=== PATIENT | female | born 1930 | race Caucasian/White ===

== ENCOUNTER → 2017-10-07 | Outpatient (CLI) | payer MEDICARE ==
--- NOTE | 2017-10-07 09:10 | CARD ---
APPROVED REPORT EXAM: Two-dimensional and M-mode echocardiogram with Doppler and color Doppler. Other Information Quality : Average Rhythm : NSR INDICATION Hypertension/HCVD 2D DIMENSIONS RVDd3.2 (2.9-3.5cm)Left Atrium(2D)3.1 (1.6-4.0cm) IVSd0.9 (0.7-1.1cm)Aortic Root(2D)2.4 (2.0-3.7cm) LVDd4.6 (3.9-5.9cm)LVOT Diameter2.0 (1.8-2.4cm) PWd0.9 (0.7-1.1cm)LVDs3.4 (2.5-4.0cm) FS (%) 25.4 %SV48.4 ml LVEF(%)50.2 (>50%) Aortic Valve AoV Peak Luis.194.4cm/sAoV VTI51.6cm AO Peak GR.15.1mmHgLVOT Peak Luis.91.7cm/s LVOT VTI 22.93cmAO Mean GR.10mmHg NAVEEN (VMAX)1.86re6OEU (VTI)1.40cm2 Mitral Valve MV E Yqqlgvdj241.0cm/sMV E Peak Gr.12mmHg MV DECEL [id number] A Vvuefsgp533.3cm/s MV E Mean Gr.4mmHgMV LMX19pp E/A Ratio0.9MV A Egnkrsnq447qn MVA (PHT)3.54cm2 Tricuspid Valve TR P. Jptgdtzm593jk/sRAP TUFOFGRP2fsUq TR Peak Gr.31iwUlQJEA91tsEv LEFT VENTRICLE The left ventricle is normal size. There is normal left ventricular wall thickness. Left ventricle sy stolic function is normal. The Ejection Fraction is 50-55%. There is normal LV segmental wall motion. Tissue Doppler imaging reveals mild left ventricular diastolic dysfunction. There is no ventricular septal defect visualized. RIGHT VENTRICLE The right ventricle is normal size. The right ventricular systolic function is normal. ATRIA The left atrium is mildly dilated. The right atrium size is normal. The interatrial septum is intact with no evidence for an atrial septal defect or patent foramen ovale as noted on 2-D or Doppler imagi ng. AORTIC VALVE The aortic valve is not well visualized. Suspect non-coronary cusp leaflet restriction. Doppler and C olor Flow revealed no significant aortic regurgitation. Maximum pressure gradient of 15 mmHg and mean pressure gradient of 10 mmHg. No evidence of significant aortic stenosis by doppler interrogation. MITRAL VALVE Mitral annular calcification is mild. There is no mitral valve stenosis. Doppler and Color Flow revea led mild mitral regurgitation. TRICUSPID VALVE The tricuspid valve is normal in structure. Doppler and Color Flow revealed mild tricuspid regurgitat ion. The PA pressure was estimated at 42 mmHg. There is no tricuspid valve stenosis. PULMONIC VALVE The pulmonic valve is not well visualized. Doppler and Color Flow revealed no pulmonic valvular regur gitation. There is no pulmonic valvular stenosis. GREAT VESSELS The aortic root is normal in size. Pulmonary veins not recorded. The IVC was not well visualized. PERICARDIAL EFFUSION There is no evidence of significant pericardial effusion. Critical Notification Critical Value: No <Conclusion> Left ventricle systolic function is normal. The Ejection Fraction is 50-55%. There is normal LV segmental wall motion. Doppler and Color Flow revealed mild tricuspid regurgitation. The PA pressure was estimated at 42 mmH g.
== END | disposition home or self-care (01) ==
LOC: ECHO 07:26
PROVIDERS: ATTEND Internal Medicine Cardiovascular Disease
DX: I11.9 Hypertensive heart disease without heart failure (principal); I70.0 Atherosclerosis of aorta; I08.1 Rheumatic disorders of both mitral and tricuspid valves
CPT/HCPCS: 93306

== ENCOUNTER → 2017-10-08 | Outpatient (CLI) | payer MEDICARE ==
--- NOTE | 2017-10-08 11:30 | RAD ---
APPROVED REPORT Patient Location: OUT-PATIENT Indications Reynoso scale images of the bilateral lower extremity arterial vessels reveals mild to moderate scattere d atherosclerotic plaque throughout the arterial tree. The waveforms are biphasic throughout the bila teral lower extremities. Velocities in the common femoral, SFA and popliteal segments on the right side are approximately 153, 131 and 65 cm/s. The below-knee vessels appear to be patent on the right side with velocities in the range of 33 to 66 cm/s. Similarly on the left side velocities from the common femoral artery to the popliteal segment range from 117 in the ADO[employer]KER to 79 in the popliteal. Below-knee vessels on the left si de are again patent. No high-grade disease is identified. Suspect mild to moderate diffuse disease. Critical Notification Critical Value: No <Conclusion> No evidence of high-grade disease in the bilateral lower extremity arterial vessels with three-vessel runoff below the knees.
== END | disposition home or self-care (01) ==
LOC: US 08:16
PROVIDERS: ATTEND Internal Medicine Cardiovascular Disease
DX: I73.9 Peripheral vascular disease, unspecified (principal); I11.9 Hypertensive heart disease without heart failure
CPT/HCPCS: 93925

== ENCOUNTER → 2018-04-28 | Outpatient (CLI) | payer MEDICARE ==
--- NOTE | 2018-04-28 17:03 | RAD ---
MR#: [id number] Date of Study: 04/28/2018 Ordering Physician: KRISTIN HELLER, Referring Physician: KRISTIN HELLER, Tech: Karolina Posada RDMS, JUNO APPROVED REPORT Patient Location: OUT-PATIENT Laterality:Bilateral Indications ARTERIAL STENOSIS, HISTORY OF BILATERAL ENDARECTOMIES Grayscale images of the bilateral common carotid, carotid bulbs, internal carotid and external caroti d vessels reveal mild nonobstructive plaque with mild intimal hyperplasia. Spectral waveforms and col or Doppler on the right and left common carotid, internal and external carotid vessels do not reveal any significant velocity acceleration or deceleration. Overall 0 to less than 50% stenosis by ultraso und criteria bilaterally. The bilateral vertebral velocities are antegrade fashion. ICA to CCA ratios are grossly within normal limits. Risk Factors Hypertension: TIA/CVA History Hyperlipidemia PAD Surgery/Intervention Endarterectomy: right left Doppler Spectral Velocity Analysis Right Left pCCA 69/13 cm/spCCA 76/12 cm/s mCCA 56/10 cm/smCCA 75/11 cm/s dCCA 57/12 cm/sdCCA 76/14 cm/s ECA 65/9 cm/sECA 69/7 cm/s pICA 72/16 cm/spICA 69/14 cm/s Jefry 75/15 cm/smICA 73/20 cm/s dICA 81/9 cm/sdICA 73/14 cm/s ICA/CCA 1.17ICA/CCA 0.96 Critical Notification Critical Value: No <Conclusion> 1. No significant bilateral carotid arterial disease. 0 to less than 50% stenosis by ultrasound crite joann. Signed by : Berto Manzanares, Electronically Approved : 04/28/2018 17:02:19
--- NOTE | 2018-04-28 17:08 | RAD ---
MR#: [id number] Date of Study: 04/28/2018 Ordering Physician: KRISTIN HELLER, Referring Physician: KRISTIN HELLER, Tech: Karolina Posada RDMS, JUNO APPROVED REPORT Patient Location: OUT-PATIENT Indications Claudication:Bilaterally Pulselessness PAD On the right, grant scale images demonstrate diffuse atherosclerotic plaque. Elevated velocities are n oted in the distal right common femoral artery at greater than 200 cm/s suggestive of more proximal i liac disease. There is again velocity acceleration noted in the mid to distal SFA suggestive of great er than 50% stenosis, cannot rule out a previous stent in the right SFA. Below the knee there is 1 ve ssel runoff with a patent anterior tibial artery. The posterior tibial and peroneal vessels appear to be occluded. The popliteal artery is patent. On the left grayscale images again demonstrate mild diffuse catheters carotid plaque but more moderat e in nature in the mid to distal SFA. Spectral waveforms in the mid to distal SFA and velocities are suggestive of greater than 50% stenosis consistent with grayscale images. There are blunted waveforms in the posterior tibial and peroneal vessels but they appear to be patent. The anterior tibial arter y is likely occluded with distal reconstitution at the level of the dorsalis pedis likely from collat eralization. Risk Factors History of Lower Extremity PAD: Hypertension Hyperlipidemia TIA/CVA History STENT PLACED IN LT SFA MID IN 2005 PER PATIENT Surgery/Intervention Stent : VELOCITY AND DOPPLER WAVEFORM ANALYSIS RIGHT cm/secWaveformSeverity LEFT cm/secWaveform Severity pCFA 237.0BiphasicpCFA 139.0Biphasic dCFA dCFA Prof Fem Art. 103.0BiphasicProf Fem Art. 155.0Biphasic Fem Art Prox. 119.0BiphasicFem Art Prox. 100.0Biphasic Fem Art Mid. 221.0BiphasicFem Art Mid. 205.0Biphasic Fem Art Dist. 184.0BiphasicFem Art Dist. 85.0Biphasic Pop Art(AK) Pop Art(AK) Pop Art(Fossa) 52.0BiphasicPop Art(AK) 129.0Biphasic Pop Art(BK) Pop Art(BK) JOURNALISM INTERN Prox. 36.0BiphasicPTA Prox. 57.0Biphasic JOURNALISM INTERN Mid.JOURNALISM INTERN Mid. JOURNALISM INTERN Dist. 0.0OccludedPTA Dist. 80.0Biphasic Per Art Mid. 0.0OccludedPer Art Mid. 72.0Biphasic ALFRED Prox. 61.0BiphasicATA Prox. 16.0Biphasic DPA 64BiphasicDPA 182Biphasic Critical Notification Critical Value: No <Conclusion> 1. Significant bilateral mid to distal SFA and below-knee disease with 1 vessel runoff on the right a nd 2 vessel runoff on the left. Signed by : Berto Manzanares, Electronically Approved : 04/28/2018 17:06:56
== END | disposition home or self-care (01) ==
LOC: US 10:13
PROVIDERS: ATTEND Internal Medicine Cardiovascular Disease
DX: I65.23 Occlusion and stenosis of bilateral carotid arteries (principal); I77.1 Stricture of artery; I10 Essential (primary) hypertension; I73.9 Peripheral vascular disease, unspecified; E78.5 Hyperlipidemia, unspecified; Z86.73 Personal history of transient ischemic attack (TIA), and cerebral infarction without residual deficits
CPT/HCPCS: 93880; 93925

== ENCOUNTER 2020-05-19 10:01 | Emergency (ER) | payer MEDICARE ==
[~2020-05-19] VITALS: Ht 157.5 cm; Wt 52.8 kg
[2020-05-19 10:51] VITALS: BP 146/72
--- NOTE | 2020-05-19 10:51 | RAD ---
EXAM: Chest, 2 views. HISTORY: Cough. COMPARISON: None. FINDINGS: 2 views of the chest are obtained. There are small bilateral pleural effusions. There is basilar atelectasis There is emphysema. The heart is normal in size. IMPRESSION: 1. Small bilateral pleural effusions with basilar atelectasis. 2. Emphysema. Electronically signed by: Daniella Jacob MD (05/19/2020 10:48 AM) [id number]
[2020-05-19] MEDS ORDERED: AZIT250T PO (11:07)
--- NOTE | 2020-05-19 11:07 | PHYS DOC ---
General Adult EDM: Chief Complaint: DYSPNEA/RESPIRATOY DISTRESS HPI: HPI: Patient is a 89-year-old female presenting to the ED with a chief complaint of upper respiratory symptoms. Patient states that she recently had nasal congestion and was prescribed Afrin by her PCP. Patient states that the Afrin h elped her and now she has postnasal drip. Patient called PCPs office this morning and was told to come to the ER. Patient states that she wants to make sure to get a chest x-ray to see if she has pneumonia or not. Patient denies fever, chills, nausea, vomiting, chest pain. Review of Systems: Review of Systems: Constitutional: Denies fever or chills Eyes: Denies change in visual acuity HENT: Complains of sinus congestion Respiratory: Denies cough or shortness of breath Cardiovascular: Denies chest pain or edema GI: Denies abdominal pain, nausea, vomiting, bloody stools or diarrhea : Denies dysuria Musculoskeletal: Denies back pain or joint pain Heart Score: Risk Factors: Risk Factors: DM, Current or recent (<one month) smoker, HTN, HLP, family history of CAD, obesity. Risk Scores: Score 0 - 3: 2.5% MACE over next 6 weeks - Discharge Home Score 4 - 6: 20.3% MACE over next 6 weeks - Admit for Clinical Observation Score 7 - 10: 72.7% MACE over next 6 weeks - Early Invasive Strategies Allergies: Allergies: Allergies Coded Allergies Type Severity Reaction Last Updated Verified ciprofloxacin Allergy Intermediate 05/19/20 Yes levofloxacin Allergy Intermediate 05/19/20 Yes acetaminophen Adverse Reaction Intermediate LIVER DAMAGE 05/19/20 No Physical Exam: PE: Constitutional: Well developed, well nourished, no acute distress, non-toxic appearance. [] HENT: Normocephalic, atraumatic, mild maxillary sinus tenderness Eyes: EOMI Neck: Normal range of motion, Supple Cardiovascular:Heart rate regular rhythm Lungs & Thorax: Bilateral breath sounds clear to auscultation [] Abdomen: Bowel sounds normal, soft, no tenderness Extremities: No tenderness, ROM intact Neurologic: Alert and oriented X 3 EKG: EKG: [] Radiology/Procedures: Radiology/Procedures: [] Impressions: CXR IMPRESSION: 1. Small bilateral pleural effusions with basilar atelectasis. 2. Emphysema. Course & Med Decision Making: Course & Med Decision Making Pertinent Imaging studies reviewed. (See chart for details) Chest x-ray does not show obvious pneumonia. There are bilateral small pleural effusions and emphysema changes seen. Discussed results and plan of care with patient. Due to patient's presenting symptoms with possible sinus infection, patient will be discharged home on oral antibiotics. Patient is instructed to follow up with PCP in one to 2 days. Appropriate discharge instructions given to patient to return to the ED or to seek immediate medical evaluation. Patient is instructed to return to the ED if symptoms worsen or if any concerns. Dragon Disclaimer: Dragon Disclaimer: This electronic medical record was generated, in whole or in part, using a voice recognition dictation system. Departure Departure: Impression: Primary Impression: Sinusitis Disposition: 01 HOME/RESIDENCE PRIOR TO ADM Condition: STABLE Referrals: JAMES ZAMBRANO MD (PCP) Patient Instructions: Sinusitis Additional Instructions: Discussed results and plan of care with patient. Patient is instructed to follow up with PCP in one to 2 days. Appropriate discharge instructions given to patient to return to the ED or to seek immediate medical evaluation. Patient is instructed to return to the ED if symptoms worsen or if any concerns. Scripts Azithromycin (ZITHROMAX) 250 Mg Tablet 250 MG PO DAILY for Sinusitis for 4 Days, #4 TAB 0 Refills Prov: YU SUE DO 05/19/20 Justification of Admission: Justification of Admission: Justification of Admission Dx: YU Sanches DO May 19, 2020 11:07
[2020-05-19] MEDS ORDERED: AZITHROMYCIN 250 MG TABLET. PO ONE (11:15)
== END 2020-05-19 11:20 | disposition home or self-care (01) ==
LOC: ER 10:01
DX: J32.9 Chronic sinusitis, unspecified (principal); R09.81 Nasal congestion; Z88.1 Allergy status to other antibiotic agents; Z88.8 Allergy status to other drugs, medicaments and biological substances
CPT/HCPCS: 71046; 99283; J0456

== ENCOUNTER → 2020-05-23 | Outpatient (CLI) | payer MEDICARE ==
[2020-05-19 10:51] VITALS: BP 146/72
[~2020-05-23] MED LIST: AZIT250T PO
--- NOTE | 2020-05-23 12:55 | RAD ---
BILATERAL DUPLEX CAROTID SONOGRAPHY History: Reason: MASS ON RT NECK, HX OF BILAT ENDART, HTN Technique: Duplex sonography of the cervical portion of both carotid arteries was performed. Real-time grayscale, color flow Doppler, and Doppler spectral waveform analysis is performed. Findings: Right side: Peak systolic flow velocity of the CCA is 62 cm/sec. Peak systolic flow velocity of the ICA is 79 cm/sec. The ICA/CCA ratio is 1.3. Peak end diastolic flow velocity of the ICA is 10 cm/sec. The peak systolic velocity of the ECA is 94 cm/sec. There is an echogenic plaque in the carotid bulb. The right internal jugular vein is patent. In the right neck there is a tubular mass with internal vascularity measuring approximately 3.7 x 0.4 x 0.8 cm. Given the significant internal vascularity the structure may be vascular. Left side: Peak systolic flow velocity of the CCA is 68 cm/sec. Peak systolic flow velocity of the ICA is 83 cm/sec. The ICA/CCA ratio is 1.2. Peak end diastolic flow velocity of the ICA is 9 cm/sec. Peak systolic flow velocity of the ECA is 124 cm/sec. No significant plaque formation is identified. Vertebral arteries: Bilateral vertebral arteries demonstrate antegrade flow. IMPRESSION: 1. No hemodynamically significant internal carotid artery stenosis is identified. 2. In the right neck there is hypoechoic tubular lesion with significant internal vascularity. Recommend further evaluation with CT soft tissue neck with contrast. PQRS Compliance Statement - Stenosis calculations for CT, MR and conventional angiography are based upon measurement of the distal ICA diameter in accordance with the NASCET methodology. Stenosis calculations for carotid ultrasound studies are derived from validated velocity criteria which are known to correlate with the NASCET methodology. Electronically signed by: Bryan Lala MD (05/23/2020 12:52 PM) [id number]
== END | disposition home or self-care (01) ==
LOC: US 09:25
PROVIDERS: ATTEND Specialist
DX: I73.89 Other specified peripheral vascular diseases (principal); R22.1 Localized swelling, mass and lump, neck
CPT/HCPCS: 93880

== ENCOUNTER → 2020-06-01 | Outpatient (CLI) | payer MEDICARE ==
[2020-05-19 10:51] VITALS: BP 146/72
[~2020-06-01] MED LIST changes: +IOHEXOL 300 MG/ML 75 ML VIAL. IV ONE
--- NOTE | 2020-06-01 09:27 | RAD ---
EXAM: CT NECK SOFT TISSUES WITH CONTRAST. HISTORY: Right neck mass. TECHNIQUE: Computed tomography of the neck soft tissues was performed after the intravenous administration of iodinated contrast. One or more of the following individualized dose reduction techniques were utilized for this examination: 1. Automated exposure control. 2. Adjustment of the mA and/or kV according to patient size. 3. Use of iterative reconstruction technique. COMPARISON: None. FINDINGS: Images of the lung apices reveal moderate centrilobular emphysema. There are small to moderate bilateral pleural effusions. Bone windows reveal no suspicious lesions. Posterior disc-osteophyte complexes from C5 through C7 result in at least mild central canal stenosis, incompletely assessed by CT. An ill-defined infiltrative mass appears to arise within the deep lobe of the right parotid gland and measures approximately 3.8 x 3.6 cm transaxially. It extends superiorly to the stylomastoid foramen, medially to the medial aspect of the lateral pterygoid muscle and anteriorly to the posterior border of the mandible. It extends to abut and compress the right carotid space without clear encasement. There is partial encasement of the right styloid process. It either compresses or invades the right parapharyngeal fat. The right internal jugular vein is compressed proximally but patent more distally. Both styloid processes are long and extend almost to the hyoid bone. The left parotid gland is unremarkable. Both submandibular glands are unremarkable. An exophytic nodule along the inferior pole of the left thyroid lobe measures 2.0 x 1.0 cm. A right supraclavicular node measures 1.6 x 1.0 cm on image 53. There are no other clearly enlarged lymph nodes. There are no clear laryngeal or pharyngeal masses. IMPRESSION: 1. 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 Ongoing management is recommended. 2. One prominent right supraclavicular lymph node is indeterminate. No other clearly involved nodes are seen. 3. Correlate clinically for Platinum syndrome. 4. Moderate centrilobular emphysema. Small to moderate bilateral pleural effusions. Electronically signed by: Gerald Valdez MD (06/01/2020 9:24 AM) [id number]
== END ==
LOC: CT 08:12
PROVIDERS: ATTEND Specialist
DX: R22.1 Localized swelling, mass and lump, neck (principal); J43.2 Centrilobular emphysema; J90 Pleural effusion, not elsewhere classified
CPT/HCPCS: 70491; Q9967

== ENCOUNTER 2020-06-26 17:18 | Inpatient (IN) | payer MEDICARE ==
[~2020-06-26] VITALS: Ht 160 cm; Wt 49.8 kg
[~2020-06-26 17:18] MED LIST changes: -IOHEXOL 300 MG/ML 75 ML VIAL. IV ONE
[2020-06-26] MEDS ORDERED: IV RINGERS SOLUTION,LACTATED 1,000 ML IV SCH (17:46)
--- NOTE | 2020-06-26 17:46 | PHYS DOC ---
Past History Past Medical History: Anxiety, Arthritis, CHF, COPD, Diabetes, High Cholesterol, Hypertension, TIA, Other Additional Past Medical Histor: Doss's Palsy x 2 Past Surgical History: Appendectomy, Cholecystectomy, Oophorectomy, Other Additional Past Surgical Histo: cataracts; Carotid Endarectomy Smoking: Quit Greater Than 1 Year Alcohol Use: None General Adult EDM: Chief Complaint: SHORTNESS OF BREATH HPI: HPI: "..I been getting sick a few days.. now... cough,.. fever like.... chills... almost like the flu.... I so short of breath... ..".. :' I can 't lay down..because I get so short of breath..."" I usually see Stuart Archuleta...." Patient is a 89 year old female who presents with above hx and complaints of dyspnea, cough, chest congestion, and malaise. Pt. denies recent travel or specific ill contacts. Patient reports increased dyspnea with even short distances of walking. Patient has had some subjective fever or chills-like symptoms. Patient normally follows with Dr. Alpesh Chase. Has had history of previous episodes of CHF. On review of x-ray showed has previous x-rays on file showing bilateral basilar atelectasis and pleural effusion. Does have a history of emphysema, TIA,,CVA, Elevated Lipids, Peripheral Art. Dz,, arthritis, diabetic and Bronchitis. Pt. has not been oxygen dependent. Pt. follows with Norm. Patient has also follow-up with Dr. River. Review of Systems: Review of Systems: Constitutional: Denies fever or chills Eyes: Denies change in visual acuity HENT: Denies nasal congestion or sore throat Respiratory: Complaints of cough and shortness of breath Cardiovascular: Denies chest pain or edema GI: Denies abdominal pain, nausea, vomiting, bloody stools or diarrhea : Denies dysuria Musculoskeletal: Denies back pain or joint pain Integument: Denies rash Neurologic: Denies headache, focal weakness or sensory changes Endocrine: Denies polyuria or polydipsia Lymphatic: Denies swollen glands Psychiatric: Denies depression or anxiety Heart Score: HEART Score for Chest Pain: HEART Score for Chest Pain Response (Comments) Value History Moderately Suspicious 1 ECG Nonspecific Repolarizatio 1 Age > 65 2 Risk Factors 1 or 2 Risk Factors 1 Troponin < Normal Limit 0 Total 5 Risk Factors: Risk Factors: DM, Current or recent (<one month) smoker, HTN, HLP, family history of CAD, obesity. Risk Scores: Score 0 - 3: 2.5% MACE over next 6 weeks - Discharge Home Score 4 - 6: 20.3% MACE over next 6 weeks - Admit for Clinical Observation Score 7 - 10: 72.7% MACE over next 6 weeks - Early Invasive Strategies Family History: Family History: Noncontributory to presentation Current Medications: Current Meds: See nursing for home meds Allergies: Allergies: Allergies Coded Allergies Type Severity Reaction Last Updated Verified ciprofloxacin Allergy Intermediate 06/26/20 Yes levofloxacin Allergy Intermediate 06/26/20 Yes acetaminophen Adverse Reaction Intermediate LIVER DAMAGE 06/26/20 No Physical Exam: PE: Constitutional: Moderate acute distress, non-toxic appearance. Upon movement her sats dropped below 90%. HENT: Normocephalic, atraumatic, bilateral external ears normal, oropharynx moist, no oral exudates, nose normal. []Rt. side [place] ( Present previously) Hearing aids. Eyes: Marked decreased vision in Rt eye, ( Old) conjunctiva normal, no discharge. Glasses Neck: Normal range of motion, no tenderness, supple, no stridor. JVD sitting position. Old surgery scar. Cardiovascular: Tachycardia heart rate regular rhythm, no murmur, PMI to the left, occasional PVC noted on monitor Lungs & Thorax: Bilateral breath sounds bibasilar crackles and wheezes, some rhonchi on auscultation []Dull to percussion bilateral bases > Rt. than Lt. Abdomen: Bowel sounds hyperactive, soft, no tenderness, no masses, no pulsatile masses. Has old surgery scars. Skin: Warm, dry, no erythema, no rash. Poor turgor Back: No tenderness, no CVA tenderness. [] Extremities: No tenderness, no cyanosis, no clubbing, ROM intact, ankle edema. Arthritic changes,decreased bilateral pedal pulses. Neurologic: Alert and oriented X 3, moves extremities on request has distal sensory, no gross focal deficits noted. [] Psychologic: Affect anxious, judgement normal, mood normal. [] EKG: EKG: My interpretation of EKG shows a sinus rhythm at 91 bpm. She does have PVCs. There is an occasional PAC. Slightly prolonged QT interval at 394 QTC is 486.] Radiology/Procedures: Radiology/Procedures: [[address] [address] IMAGING REPORT Signed PATIENT: ALVIN PARKER ACCOUNT: [id number] : 1930 LOCATION: ER AGE: 89 SEX: F EXAM STATUS: REG ER ORD. PHYSICIAN: TREE GARCIA MD REASON: hypoxia, dyspnea PROCEDURE: CT ANGIOGRAPHY CHEST Exam: CT of chest with contrast INDICATION: Hypoxia, dyspnea TECHNIQUE: Sequential axial images through the chest obtained following the administration of 100 mL of Omni 350 IV contrast. Sagittal and coronal reformatted images were reconstructed from the axial data and reviewed. 3-D reformatted images were reconstructed from the axial data and reviewed. Comparisons: Chest x-ray same day FINDINGS: Visualized portions of the thyroid are unremarkable. No enlarged mediastinal lymph nodes. Heart size is normal. Mild coronary artery calcifications. Thoracic aorta has a normal course and caliber. Pulmonary artery is not enlarged. No pulmonary embolus identified within the main, lobar or segmental pulmonary arteries. Airways are patent. No consolidation or pneumothorax. There is a moderate-sized right pleural effusion causing atelectasis of the right lower lobe. Additionally there is atelectasis of the right middle lobe inferiorly. There is a 6 moderate left pleural effusion with a component in the major fissure. Mild to moderate centrilobular emphysematous change at the upper lungs. No suspicious lung nodules are identified. Pneumobilia is noted, likely postprocedural. No suspicious osseous lesions or acute fractures. IMPRESSION: 1. No pulmonary embolus identified within the main, lobar or segmental pulmonary arteries. 2. Moderate to large bilateral pleural effusions causing adjacent atelectasis. 3. Pneumobilia, correlate with procedural history. Exposure: One or more of the following in the visualized dose reduction techniques were utilized for this examination: 1. Automated exposure control 2. Adjustment of the MA and/or KV according to patient size 3. Use of iterative of reconstructive technique Electronically signed by: Tete Bond MD (06/26/2020 8:15 PM) [id number] DICTATED AND SIGNED BY: TETE BOND MD DATE: 06/26/202014 CC: TREE GARCIA MD; JAMES ZAMBRANO MD ~ ][place] [address] IMAGING REPORT Signed PATIENT: ALVIN PARKER ACCOUNT: [id number] : 1930 LOCATION: ER AGE: 89 SEX: F EXAM STATUS: REG ER ORD. PHYSICIAN: TREE GARCIA MD REASON: dyspnea PROCEDURE: PORTABLE CHEST 1V Single view chest dated 06/26/2020. Comparison made to 05/19/2020. CLINICAL INDICATION: Dyspnea. FINDINGS: single upright portable exam performed. Heart and mediastinal contours are stable. There is blunting of the costophrenic sulci, right greater than left, somewhat increased from prior study. Vascular interstitium within normal limits. No pneumothorax. IMPRESSION: Bilateral pleural effusions, mildly increased from prior study. Electronically signed by: Thee Rodriguez MD (06/26/2020 6:15 PM) [facility] DICTATED AND SIGNED BY: THEE RODRIGUEZ MD DATE: 06/26/201814 CC: TREE GARCIA MD; JAMES ZAMBRANO MD ~ Course & Med Decision Making: Course & Med Decision Making Pertinent Labs and Imaging studies reviewed. (See chart for details) Discussed presentation, testing and tx. plan with Dr. Whitley, admit with Cardiology consult. 2100 ] Impression: 1. Dyspnea- Multifactorial Emphysema, Viral Syndrome, CHF , bilateral pleural effusions. 2. Hypokalemia 3.3 3. DM 147 4. Elevated D-dimer 2.67 5. Malnutrition Alb. 3.2 6. Elevated Alk. Phos 122 and [place] 11 [] Dragon Disclaimer: Dragon Disclaimer: This electronic medical record was generated, in whole or in part, using a voice recognition dictation system. Departure Departure: Disposition: HOME/RESIDENCE PRIOR TO ADM Condition: STABLE Referrals: JAMES ZAMBRANO MD (PCP) Justification of Admission: Justification of Admission: Justification of Admission Dx: Yes CHF: Cardiac Arrhythmias Dragon Disclaimer This chart was dictated in whole or in part using Voice Recognition software in a busy, high-work load, and often noisy Emergency Department environment. It may contain unintended and wholly unrecognized errors or omissions. Dragon Disclaimer This chart was dictated in whole or in part using Voice Recognition software in a busy, high-work load, and often noisy Emergency Department environment. It ma y contain unintended and wholly unrecognized errors or omissions. TREE GARCIA MD Jun 26, 2020 17:46
[2020-06-26] MEDS ORDERED: ASPIRIN CHEWABLE 81 MG TABLET. PO ONE (18:00)
--- NOTE | 2020-06-26 18:18 | RAD ---
Single view chest dated 06/26/2020. Comparison made to 05/19/2020. CLINICAL INDICATION: Dyspnea. FINDINGS: single upright portable exam performed. Heart and mediastinal contours are stable. There is blunting of the costophrenic sulci, right greater than left, somewhat increased from prior study. Vascular interstitium within normal limits. No pneumothorax. IMPRESSION: Bilateral pleural effusions, mildly increased from prior study. Electronically signed by: Thee Rodriguez MD (06/26/2020 6:15 PM) KALEY
--- NOTE | 2020-06-26 18:26 | EKG ---
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
[2020-06-26] MEDS ORDERED: AZITHROMYCIN 250 MG TABLET. PO ONE (18:45)
[2020-06-26] MEDS ORDERED: ALBUTEROL SULFATE 8GM INHALER. INH ONE (18:45)
[2020-06-26 18:46] LABS: BASO % 1 % (0-3); EOS # 0.1 x10^3/uL (0.0-0.7); EOS % 2 % (0-3); HEMATOCRIT 36.4 % (36.0-47.0); HEMOGLOBIN 12.8 g/dL (12.0-15.5); LYMPH # 0.5 x10^3/uL (1.0-4.8); LYMPH % 9 % (24-48); MEAN CORPUSCULAR HEMOGLOBIN 32 pg (25-35); MEAN CORPUSCULAR HGB CONC 35 g/dL (31-37); MEAN CORPUSCULAR VOLUME 91 fL (79-100); MONO # 0.6 x10^3/uL (0.0-1.1); MONO % 11 % (0-9); NEUT # 4.2 x10^3uL (1.8-7.7); NEUT % 77 % (31-73); PLATELET COUNT 208 x10^3/uL (140-400); RED BLOOD COUNT 4.02 x10^6/uL (3.50-5.40); WHITE BLOOD COUNT 5.5 x10^3/uL (4.0-11.0)
[2020-06-26 18:49] LABS: CALCIUM 8.2 mg/dL (8.5-10.1); CREATININE 0.7 mg/dL (0.6-1.0); POTASSIUM 3.3 mmol/L (3.5-5.1)
[2020-06-26] MEDS ORDERED: IV NORMAL SALINE 50ML 50 ML ONE (18:49)
[2020-06-26] MEDS ORDERED: cefTRIAXone SODIUM 1 GM VIAL ONE (18:49)
[2020-06-26 19:02] LABS: ALBUMIN 3.2 g/dL (3.4-5.0); DIRECT BILIRUBIN 0.3 mg/dL (0.0-0.2); MAGNESIUM 1.9 mg/dL (1.8-2.4); TOTAL BILIRUBIN 0.6 mg/dL (0.2-1.0); TOTAL PROTEIN 6.2 g/dL (6.4-8.2)
[2020-06-26] MEDS ORDERED: POTASSIUM CHLORIDE 20 MEQ TABLET.ER. PO ONE (19:15)
[2020-06-26] MEDS ORDERED: FUROSEMIDE 40 MG/4 ML VIAL IVP ONE (19:15)
[2020-06-26] MEDS ORDERED: ENOXAPARIN ** NOTE DOSE ** SYRINGE SQ ONE (19:30)
[2020-06-26] MEDS ORDERED: ONDANSETRON PF 4 MG/2 ML VIAL. IVP PRN (19:30)
[2020-06-26] MEDS ORDERED: IOHEXOL 350 MG/ML 100 ML VIAL. IV ONE (19:30)
[2020-06-26] MEDS: IPRATRPIUM/ALBUTEROL 0.5/2.5MG 3 ML NEBU. NEB SCH (19:39)
[2020-06-26 19:47] LABS: BACTERIA,URINE 0 /HPF (0-FEW); BILIRUBIN,URINE NEG (NEG); CLARITY,URINE CLEAR; COLOR,URINE YELLOW; GLUCOSE,URINE NEG (NEG); NITRITE,URINE NEG (NEG); RBC,URINE OCC /HPF (0-2); SQUAMOUS EPITHELIAL CELL,UR FEW /LPF; UROBILINOGEN,URINE 0.2 mg/dL (0.2 mg/dL); WBC,URINE OCC /HPF (0-4)
--- NOTE | 2020-06-26 20:18 | RAD ---
Exam: CT of chest with contrast INDICATION: Hypoxia, dyspnea TECHNIQUE: Sequential axial images through the chest obtained following the administration of 100 mL of Omni 350 IV contrast. Sagittal and coronal reformatted images were reconstructed from the axial data and reviewed. 3-D reformatted images were reconstructed from the axial data and reviewed. Comparisons: Chest x-ray same day FINDINGS: Visualized portions of the thyroid are unremarkable. No enlarged mediastinal lymph nodes. Heart size is normal. Mild coronary artery calcifications. Thoracic aorta has a normal course and caliber. Pulmonary artery is not enlarged. No pulmonary embolus identified within the main, lobar or segmental pulmonary arteries. Airways are patent. No consolidation or pneumothorax. There is a moderate-sized right pleural effusion causing atelectasis of the right lower lobe. Additionally there is atelectasis of the right middle lobe inferiorly. There is a 6 moderate left pleural effusion with a component in the major fissure. Mild to moderate centrilobular emphysematous change at the upper lungs. No suspicious lung nodules are identified. Pneumobilia is noted, likely postprocedural. No suspicious osseous lesions or acute fractures. IMPRESSION: 1. No pulmonary embolus identified within the main, lobar or segmental pulmonary arteries. 2. Moderate to large bilateral pleural effusions causing adjacent atelectasis. 3. Pneumobilia, correlate with procedural history. Exposure: One or more of the following in the visualized dose reduction techniques were utilized for this examination: 1. Automated exposure control 2. Adjustment of the MA and/or KV according to patient size 3. Use of iterative of reconstructive technique Electronically signed by: Tete Lau MD (06/26/2020 8:15 PM) [id number]
[2020-06-26] MEDS ORDERED: ENOXAPARIN 40 MG/0.4 ML SYRINGE. SQ ONE (21:00)
--- NOTE | 2020-06-26 23:05 | NUR ---
Admission Note: Pt transported via EMS from ED to room 105, pt able to ambulate from cart to bed w/no assistance, steady gait observed, VSS, telemetry applied, admission documentation completed, home medications and allergies verified with patient, advised pt of isolation precautions and unit routines, pt states she understands, water provided, dentures soaking, pt oriented to room and call light, will continue to monitor.
[2020-06-26 23:09] VITALS: BP_SYST 154; BP_SYST 162; BP_DIAS 71; BP_DIAS 97
[2020-06-26] MEDS ORDERED: VIT1TABL32 PO (23:34)
[2020-06-26] MEDS ORDERED: CLOP75TA PO (23:34)
[2020-06-26] MEDS ORDERED: ATEN25TA2 PO (23:34)
[2020-06-27] MEDS ORDERED: IBUP-1673 PO (00:12)
[2020-06-27] MEDS ORDERED: AMLO5TAB10 PO (00:12)
[2020-06-27] MEDS ORDERED: DICL100G18 TP (00:12)
[2020-06-27] MEDS ORDERED: CHOL400T36 PO (00:12)
[2020-06-27] MEDS ORDERED: CALC1TAB PO (00:12)
[2020-06-27] MEDS ORDERED: VIT1CAPS12 PO (00:12)
[2020-06-27] MEDS: IPRATRPIUM/ALBUTEROL 0.5/2.5MG 3 ML NEBU. NEB SCH ×3 (05:00→15:41)
[2020-06-27 05:59] VITALS: BP 139/72
[2020-06-27] MEDS ORDERED: FUROSEMIDE 40 MG/4 ML VIAL IVP ONE (06:00)
[2020-06-27 06:15] LABS: BASO % 1 % (0-3); EOS # 0.1 x10^3/uL (0.0-0.7); EOS % 2 % (0-3); HEMATOCRIT 36.9 % (36.0-47.0); HEMOGLOBIN 13.1 g/dL (12.0-15.5); LYMPH # 0.7 x10^3/uL (1.0-4.8); LYMPH % 11 % (24-48); MEAN CORPUSCULAR HEMOGLOBIN 32 pg (25-35); MEAN CORPUSCULAR HGB CONC 36 g/dL (31-37); MEAN CORPUSCULAR VOLUME 90 fL (79-100); MONO # 0.7 x10^3/uL (0.0-1.1); MONO % 11 % (0-9); NEUT # 4.5 x10^3uL (1.8-7.7); NEUT % 75 % (31-73); PLATELET COUNT 212 x10^3/uL (140-400); RED BLOOD COUNT 4.11 x10^6/uL (3.50-5.40); RED CELL DISTRIBUTION WIDTH 13.4 % (11.5-14.5); WHITE BLOOD COUNT 5.9 x10^3/uL (4.0-11.0)
[2020-06-27 06:26] LABS: CALCIUM 8.5 mg/dL (8.5-10.1); CREATININE 0.9 mg/dL (0.6-1.0); GFR 59.1; POTASSIUM 3.1 mmol/L (3.5-5.1)
[2020-06-27] MEDS ORDERED: POTASSIUM CHLORIDE 20 MEQ TABLET.ER. PO ONE (07:30)
--- NOTE | 2020-06-27 07:49 | PDOC2 ---
CARDIAC CONSULT DATE OF CONSULT Date Of Consult DATE: 06/27/20 TIME: 07:42 REASON FOR CONSULT Reason for Consult CHF REFERRING PHYSICIAN Referring Physician Dr. Neal SOURCE Source: Chart review, Patient HPI History of Present Illness This is a 89 yo female who presented secondary to shortness of breath. Reports increased shortness of breath with exertion over the last week or so. No LE edema. No chest pain or palpitations. Has also has cough. Is feeling better post-diuresis. Has a h/o PAD. Denies any claudication symptoms. PAST MEDICAL HISTORY Past Medical History [place] Palsy Cardiovascular: CHF, HTN, Other (PAD, carotid disease) PAST SURGICAL HISTORY Past Surgical History: Appendectomy, Cholecystectomy, Hysterectomy, Other (bilateral carotid endarterectomy ) FAMILY HISTORY Family History: Stroke SOCIAL HISTORY Smoke: No ALCOHOL: none Drugs: None CURRENT MEDICATIONS Current Medications Current Medications Aspirin (Aspirin Chewable) 324 mg 1X ONCE PO ; Start 06/26/20 at 18:00; Stop 06/26/20 at 18:32; Status DC Lactated Ringer's 1,000 ml @ 100 mls/hr Q10H IV Last administered on 06/26/20at 18:42; Start 06/26/20 at 17:46; Stop 06/27/20 at 03:45; Status DC Azithromycin (Zithromax) 500 mg 1X ONCE PO Last administered on 06/26/20at 18:57; Start 06/26/20 at 18:45; Stop 06/26/20 at 18:46; Status DC Ceftriaxone Sodium 1 gm/ Sodium Chloride 50 ml @ 100 mls/hr 1X ONCE IV Last administered on 06/26/20at 18:58; Start 06/26/20 at 18:45; Stop 06/26/20 at 19:14; Status DC Albuterol Sulfate (Ventolin Hfa Inhaler) 2 puff 1X ONCE INH Last administered on 06/26/20at 19:00; Start 06/26/20 at 18:45; Stop 06/26/20 at 18:46; Status DC Sodium Chloride 50 ml @ As Directed STK-MED ONCE .ROUTE ; Start 06/26/20 at 18:49; Stop 06/26/20 at 18:50; Status DC Ceftriaxone Sodium (Rocephin) 1 gm STK-MED ONCE .ROUTE ; Start 06/26/20 at 18:49; Stop 06/26/20 at 18:50; Status DC Potassium Chloride (Klor-Con) 40 meq 1X ONCE PO Last administered on 06/26/20at 20:03; Start 06/26/20 at 19:15; Stop 06/26/20 at 19:26; Status DC Furosemide (Lasix) 40 mg 1X ONCE IVP Last administered on 06/26/20at 20:04; Start 06/26/20 at 19:15; Stop 06/26/20 at 19:26; Status DC Enoxaparin Sodium (Lovenox 60mg Syringe) 50 mg 1X ONCE SQ Last administered on 06/26/20at 20:03; Start 06/26/20 at 19:30; Stop 06/26/20 at 19:31; Status DC Iohexol (Omnipaque 350 Mg/ml) 100 ml 1X ONCE IV Last administered on 06/26/20at 19:54; Start 06/26/20 at 19:30; Stop 06/26/20 at 19:41; Status DC Ondansetron HCl (Zofran) 4 mg PRN Q4HRS PRN IVP NAUSEA/VOMITING; Start 06/26/20 at 19:30; Stop 06/27/20 at 19:29 Albuterol/ Ipratropium (Duoneb) 3 ml RTQID NEB Last administered on 06/27/20at 05:00; Start 06/26/20 at 20:00; Stop 06/27/20 at 19:59 Azithromycin (Zithromax) 250 mg DAILY PO ; Start 06/27/20 at 09:00 Enoxaparin Sodium (Lovenox 40mg Syringe) 50 mg BID ONCE SQ ; Start 06/26/20 at 21:00; Stop 06/26/20 at 22:12; Status DC Clopidogrel Bisulfate (Plavix) 75 mg DAILY ONCE PO ; Start 06/27/20 at 09:00; Stop 06/27/20 at 09:01 Furosemide (Lasix) 40 mg 1X ONCE IVP Last administered on 06/27/20at 05:33; Start 06/27/20 at 06:00; Stop 06/27/20 at 06:01; Status DC Potassium Chloride (Klor-Con) 40 meq 1X ONCE PO ; Start 06/27/20 at 07:30; Stop 06/27/20 at 07:32; Status DC Amlodipine Besylate (Norvasc) 5 mg DAILY PO ; Start 06/27/20 at 09:00; Status UNV Atenolol (Tenormin) 25 mg BID PO ; Start 06/27/20 at 09:00; Status UNV Active Scripts Active Reported Voltaren (Diclofenac Sodium) 100 Gm Gel..gram. 100 Gm TP PRN PRN Ibuprofen 200 Mg Tablet 200 Mg PO PRN PRN Preservision Areds Softgel (Vit A/Vit C/Vit E/Zinc/Copper) 1 Each Capsule 1 Each PO BID Vitamin D (Cholecalciferol (Vitamin D3)) 400 Unit Tablet 2,000 Mg PO DAILY Caltrate 600 + D Tablet (Calcium Carbonate/Vitamin D3) 1 Each Tablet 1 Each PO DAILY Amlodipine Besylate 5 Mg Tablet 5 Mg PO DAILY Clopidogrel (Clopidogrel Bisulfate) 75 Mg Tablet 75 Mg PO HS Atenolol 25 Mg Tablet 25 Mg PO BID ALLERGIES Allergies: Coded Allergies: ciprofloxacin (Verified Allergy, Intermediate, 06/26/20) levofloxacin (Verified Allergy, Intermediate, 06/26/20) acetaminophen (Unverified Adverse Reaction, Intermediate, LIVER DAMAGE, 06/26/20) ROS Review of Systems 14 point ROS conducted with pertinent positives noted above HPI PHYSICAL EXAM General: Alert, Oriented X3, Cooperative, No acute distress HEENT: Atraumatic Lungs: Other (bibasilar crackles ) Heart: Regular rate, Normal S1, Normal S2 Abdomen: Soft, No tenderness Extremities: No edema Skin: No breakdown Neuro: Normal speech, Sensation intact Psych/Mental Status: Mental status NL, Mood NL MUSCULOSKELETAL: Osteoarthritic changes both hands VITALS Vital Signs Vital Signs Date Time Temp Pulse Resp B/P (MAP) Pulse Ox O2 Delivery O2 Flow Rate FiO2 06/27/20 05:59 98.3 81 18 139/72 (94) 93 Room Air LABS LABS Laboratory Tests Test 06/26/20 17:55 06/26/20 19:00 06/27/20 05:45 White Blood Count 5.5 x10^3/uL (4.0-11.0) 5.9 x10^3/uL (4.0-11.0) Red Blood Count 4.02 x10^6/uL (3.50-5.40) 4.11 x10^6/uL (3.50-5.40) Hemoglobin 12.8 g/dL (12.0-15.5) 13.1 g/dL (12.0-15.5) Hematocrit 36.4 % (36.0-47.0) 36.9 % (36.0-47.0) Mean Corpuscular Volume 91 fL (79-100) 90 fL (79-100) Mean Corpuscular Hemoglobin 32 pg (25-35) 32 pg (25-35) Mean Corpuscular Hemoglobin Concent 35 g/dL (31-37) 36 g/dL (31-37) Red Cell Distribution Width 14.0 % (11.5-14.5) 13.4 % (11.5-14.5) Platelet Count 208 x10^3/uL (140-400) 212 x10^3/uL (140-400) Neutrophils (%) (Auto) 77 % (31-73) 75 % (31-73) Lymphocytes (%) (Auto) 9 % (24-48) 11 % (24-48) Monocytes (%) (Auto) 11 % (0-9) 11 % (0-9) Eosinophils (%) (Auto) 2 % (0-3) 2 % (0-3) Basophils (%) (Auto) 1 % (0-3) 1 % (0-3) Neutrophils # (Auto) 4.2 x10^3uL (1.8-7.7) 4.5 x10^3uL (1.8-7.7) Lymphocytes # (Auto) 0.5 x10^3/uL (1.0-4.8) 0.7 x10^3/uL (1.0-4.8) Monocytes # (Auto) 0.6 x10^3/uL (0.0-1.1) 0.7 x10^3/uL (0.0-1.1) Eosinophils # (Auto) 0.1 x10^3/uL (0.0-0.7) 0.1 x10^3/uL (0.0-0.7) Basophils # (Auto) 0.0 x10^3/uL (0.0-0.2) 0.0 x10^3/uL (0.0-0.2) Prothrombin Time 11.9 SEC (9.4-11.4) Prothromb Time International Ratio 1.1 (0.9-1.1) Activated Partial Thromboplast Time 27 SEC (23-33) D-Dimer (Usha) 2.67 mg/L (0.00-0.50) Sodium Level 135 mmol/L (136-145) 135 mmol/L (136-145) Potassium Level 3.3 mmol/L (3.5-5.1) 3.1 mmol/L (3.5-5.1) Chloride Level 97 mmol/L (98-107) 97 mmol/L (98-107) Carbon Dioxide Level 29 mmol/L (21-32) 31 mmol/L (21-32) Anion Gap 9 (6-14) 7 (6-14) Blood Urea Nitrogen 15 mg/dL (7-20) 9 mg/dL (7-20) Creatinine 0.7 mg/dL (0.6-1.0) 0.9 mg/dL (0.6-1.0) Estimated GFR (Cockcroft-Gault) 79.0 59.1 Glucose Level 147 mg/dL (70-99) 103 mg/dL (70-99) Lactic Acid Level 1.3 mmol/L (0.4-2.0) Calcium Level 8.2 mg/dL (8.5-10.1) 8.5 mg/dL (8.5-10.1) Magnesium Level 1.9 mg/dL (1.8-2.4) Total Bilirubin 0.6 mg/dL (0.2-1.0) Direct Bilirubin 0.3 mg/dL (0.0-0.2) Aspartate Amino Transf (AST/SGOT) 34 U/L (15-37) Alanine Aminotransferase (ALT/SGPT) 28 U/L (14-59) Alkaline Phosphatase 122 U/L (46-116) Creatine Kinase 54 U/L (26-192) Troponin I Quantitative < 0.017 ng/mL (0-0.055) YW-Agp-E-Type Natriuretic Peptide 1341 pg/mL (0-449) Total Protein 6.2 g/dL (6.4-8.2) Albumin 3.2 g/dL (3.4-5.0) Lipase 180 U/L (73-393) Urine Collection Type Unknown Urine Color Yellow Urine Clarity Clear Urine pH 7.5 Urine Specific [place] 1.020 Urine Protein Neg (NEG-TRACE) Urine Glucose (UA) Neg mg/dL (NEG) Urine Ketones (Stick) Neg mg/dL (NEG) Urine Blood Neg (NEG) Urine Nitrite Neg (NEG) Urine Bilirubin Neg (NEG) Urine Urobilinogen Dipstick 0.2 mg/dL (0.2 mg/dL) Urine Leukocyte Esterase Neg (NEG) Urine RBC Occ /HPF (0-2) Urine WBC Occ /HPF (0-4) Urine Squamous Epithelial Cells Few /LPF Urine Bacteria 0 /HPF (0-FEW) ECHOCARDIOGRAM Echocardiogram <Conclusion> Left ventricle systolic function is normal. The Ejection Fraction is 50-55%. There is normal LV segmental wall motion. Doppler and Color Flow revealed mild tricuspid regurgitation. The PA pressure was estimated at 42 mmHg. DATE: 10/07/17 0909 ASSESSMENT/PLAN Assessment/Plan 1. Acute on chronic diastolic CHF; improved s/p IV diuresis 2. Accelerated hypertension; now controlled 3. Hyperlipidemia; LDL 96 4. PAD; s/p [employer]/stent to the left SFA. Angiogram 2018 noted with 80% calcified lesion in the right SFA, managed conservatively. Denies claudication symptoms. No wounds 5. Hypokalemia; replaced Recommendations Diuresis with monitoring of lab Check Mg and replaced as warranted Continue secondary prevention, Plavix therapy Echo to assess LV systolic function; this can be conducted on an outpatient basis if not able to be completed prior to discharge. Supportive care Patient to f/u in our office with JAYESH Bailey APRN Jun 27, 2020 07:49
[2020-06-27] MEDS: AZITHROMYCIN 250 MG TABLET. PO SCH (08:30)
[2020-06-27] MEDS: amLODIPine BESYLATE 5 MG TABLET PO SCH (08:35)
[2020-06-27] MEDS ORDERED: ATENOLOL 25 MG TABLET PO SCH (09:00)
[2020-06-27] MEDS ORDERED: CLOPIDOGREL BISULFATE 75 MG TABLET PO ONE (09:00)
[2020-06-27 11:26] VITALS: BP 128/71
--- NOTE | 2020-06-27 15:24 | HP ---
ADMIT DATE: 06/27/2020 HISTORY OF PRESENT ILLNESS: The patient is an 89-year-old female patient who came to the Emergency Room complaining of getting sick for a few days, having cough, chills, almost like flu. She is short of breath. She cannot lay down because gets so short of breath. The patient denied any recent travel or specific ill contact. The patient reports increased dyspnea with even short distances of walking. The patient has had some subjective fever and chills like symptoms. The patient normally follows with Dr. Zheng. She had a history of previous episodes of congestive heart failure, has history of emphysema. She is not on any oxygen and has been following with Dr. River for severe peripheral vascular disease. She was evaluated in the Emergency Room. Her labwork showed that her CBC was unremarkable. Her chemistry showed that she has mild hypokalemia. Her D-dimer was high at 2.67. Urinalysis was unremarkable. Her chest x-ray showed that she has bilateral pleural effusion, mildly increased from prior study. The heart and mediastinal contours are stable. There is blunting of the costophrenic angle, right greater than left, somewhat increased from prior study. Vascular interstitium within normal limits. No pneumothorax. Given her elevated D-dimer, the patient has a CT angio of the chest, which showed the heart size is normal. She has mild coronary artery calcification. Thoracic aorta has a normal course and caliber. Pulmonary artery is not enlarged. No pulmonary embolus identified within the main lobar or segmental pulmonary arteries. Airways are patent. No consolidation or pneumothorax. There is a moderate sized right-sided pleural effusion causing atelectasis in the right lower lobe. Additionally, there is atelectasis, right middle lobe inferiorly. There is a moderate left-sided pleural effusion with a component of the major fissure, mild to moderate centrilobular emphysematous changes in the upper lungs. No suspicious lung nodules identified. Pneumobilia is noted, likely post-procedural. No suspicious osseous lesion of acute fracture. Apparently, the patient was treated with IV antibiotic as well as IV Lasix and was admitted for further evaluation to consult the cardiology team. PAST MEDICAL HISTORY: Significant for hypertension, hyperlipidemia, and peripheral vascular disease. The patient has a history of shingles, trigeminal neuralgia, sensorineural deafness and she has also cholelithiasis. She underwent ERCP and stone extraction. PAST SURGICAL HISTORY: Significant for bilateral carotid artery endarterectomy, left lower extremity stent deployment, bilateral cataract extraction, appendectomy, cholecystectomy. ALLERGIES: She is allergic to TYLENOL, CIPROFLOXACIN, and LEVOFLOXACIN. MEDICATIONS: She is currently on Plavix 75 mg once a day, atenolol 25 mg twice a day, amlodipine 5 mg daily, diclofenac sodium 1 gram applied topically as needed, ibuprofen 200 mg as needed, calcium carbonate with vitamin D 1 tablet once a day, ergocalciferol vitamin D 2000 units once a day, PreserVision AREDS soft gel 1 p.o. b.i.d. FAMILY HISTORY: Unremarkable. SOCIAL HISTORY: She is and lives with her for over 65 years. She has no children. She quit smoking 25 years ago. Quit drinking alcohol, used to drink alcohol occasionally. Never used any drugs. 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 Review of systems as per history of present illness. PHYSICAL EXAMINATION: GENERAL: When I examined her, she looked pale, cachectic, but no jaundice, cyanosis or thyromegaly. No jugular venous distention. No limb edema. VITAL SIGNS: Her heart rate was 81, blood pressure was 139/72, temperature 98.3, respiratory rate was 18 and oxygen saturation was 93% on room air. HEAD, EYES, EARS, NOSE AND THROAT: Showed normocephalic, atraumatic. NECK: Supple. CARDIAC: Normal first and second heart sounds. No gallop, rub or murmur. CHEST: Clear to auscultation. No crepitation or rhonchi. 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 Neck was otherwise supple. HEART: Normal first and second heart sounds. No gallop or murmur. ABDOMEN: Distended, soft, nontender. No guarding or rigidity. No organomegaly. All hernial orifice intact. Bowel sounds normal. NEUROLOGIC: She is awake, alert, very hard of hearing, blind in her right eye, but all other cranial nerves are intact. EXTREMITIES: She moves extremities without difficulty. She ambulates without assistance or assistive devices. LABORATORY WORK: Her lab work on arrival showed a white cell count 5500, hemoglobin 12.8, hematocrit 36, MCV 91, and platelet count of 208,000 with normal manual differential. Her chemistry showed a serum sodium 135, potassium 3.3, chloride 97, bicarbonate 29, anion gap of 9, BUN 15, creatinine 0.7, estimated GFR was 79 mL per minute. Her glucose 147, calcium was 8.2, magnesium was 1.9. Total bilirubin, AST, ALT normal. Alkaline phosphatase slightly elevated. CK was 54. Troponin was less than 0.017. Beta natriuretic peptide was 1341. Total protein was 6.2, albumin was 3.2. Lipase was 180. Her prothrombin time was 11.9, INR 1.1, aPTT was 27 and D-dimer was 2.67. Urinalysis was essentially unremarkable. ASSESSMENT AND PLAN: The patient was admitted with shortness of breath, likely due to congestive heart failure and chronic obstructive pulmonary disease exacerbation. She had hypokalemia, elevated D-dimer with negative CT angio of the chest for pulmonary emboli, malnutrition. The patient was treated with IV Lasix, IV antibiotic together with Lovenox. We have consulted the communications director to see her and we will decide the further management accordingly. RANJIT MACDONALD MD DR: ELSIE/libby JOB#: [id number] / [id number]
[2020-06-27 15:26] VITALS: BP 157/60
--- NOTE | 2020-06-27 15:59 | CARD ---
MR#: [id number] Date of Study: 06/27/2020 Ordering Physician: JAYESH TARIQ, Referring Physician: JAYESH TARIQ, Tech: Giselle Jacobs ENRIQUE APPROVED REPORT EXAM: Two-dimensional and M-mode echocardiogram with Doppler and color Doppler. Other Information Quality : Good INDICATION Dyspnea Congestive Heart Failure 2D DIMENSIONS RVDd2.7 (2.9-3.5cm)Left Atrium(2D)2.6 (1.6-4.0cm) IVSd0.8 (0.7-1.1cm)Aortic Root(2D)2.3 (2.0-3.7cm) LVDd3.6 (3.9-5.9cm)LVOT Diameter1.9 (1.8-2.4cm) PWd1.1 (0.7-1.1cm)FS (%) 30.0 % LVEF(%)60.0 (>50%) Aortic Valve AoV Peak Luis.208.0cm/sAoV VTI45.0cm AO Peak GR.17.0mmHgAO Mean GR.11mmHg Mitral Valve MV E Peak Gr.9mmHgMV E Mean Gr.4mmHg MVA (PHT)1.30cm2 Tricuspid Valve TR P. Jlmqixos030tm/sRAP [id number] TR Peak Gr.[id number] LEFT VENTRICLE The left ventricle is normal size. There is normal left ventricular wall thickness. The left ventricu lar systolic function is normal. The Ejection Fraction is 60-65%. There is normal LV segmental wall m otion. Transmitral Doppler flow pattern is Grade I-abnormal relaxation pattern. RIGHT VENTRICLE The right ventricle is normal size. The right ventricular systolic function is normal. ATRIA The left atrium size is normal. The right atrium size is normal. The interatrial septum is intact wit h no evidence for an atrial septal defect or patent foramen ovale as noted on 2-D or Doppler imaging. AORTIC VALVE The aortic valve is calcified and displays decreased opening. Doppler and Color Flow revealed no sign ificant aortic regurgitation. Maximum pressure gradient of 17 mmHg and mean pressure gradient of 11 m mHg. No aortic stenosis. MITRAL VALVE The mitral valve is calcified and displays decreased opening. There is no evidence of mitral valve pr olapse. There is mild mitral valve stenosis. Calculated mitral valve area is 1.3 cm2 with maximum pre ssure gradient of 9 mmHg and mean pressure gradient of 4 mmHg. Doppler and Color-flow revealed mild m itral regurgitation. TRICUSPID VALVE The tricuspid valve is normal in structure and function. Doppler and Color Flow revealed moderate tri cuspid regurgitation. There is moderate pulmonary hypertension. The PA pressure was estimated at 58 m mHg. There is no tricuspid valve stenosis. PULMONIC VALVE The pulmonary valve is normal in structure and function. Doppler and Color Flow revealed no pulmonic valvular regurgitation. There is no pulmonic valvular stenosis. GREAT VESSELS The aortic root is normal in size. The ascending aorta is not well seen. The IVC is normal in size an d collapses >50% with inspiration. PERICARDIAL EFFUSION There is no evidence of significant pericardial effusion. Critical Notification Critical Value: No <Conclusion> The left ventricular systolic function is normal. The Ejection Fraction is 60-65%. There is normal LV segmental wall motion. There is mild mitral valve stenosis. Mild mitral regurgitation. Moderate tricuspid regurgitation. There is moderate pulmonary hypertension. The PA pressure was estimated at 58 mmHg. There is no evidence of significant pericardial effusion. Signed by : Godwin River, Electronically Approved : 06/27/2020 15:59:05
[2020-06-27 16:12] LABS: CALCIUM 8.6 mg/dL (8.5-10.1); GFR 52.3; POTASSIUM 3.5 mmol/L (3.5-5.1)
--- NOTE | 2020-06-27 18:24 | NUR ---
PT tearful most of the day. PT has tumor on right neck that is concerned about and is following up with ENT for a biopsy, however unsure if she want's treatment. 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 PT also has had an extreme weight loss of 40+ pounds. PT is able to verbalize understanding of poc, pt is [place] as is her . DR Whitley decided to keep pt overnight to have CT of her sinus, pt concerned about sleeping because her drainage is so thick it makes her cough all night. Will continue to monitor. PT is steady on her feet and has been ambulating in room. Bhakti PAINTER
[2020-06-27 19:26] VITALS: BP 132/58
[2020-06-27] MEDS ORDERED: AZELASTINE NASAL SPRAY 30ML BOTTLE. NS PRN (19:30)
--- NOTE | 2020-06-27 19:58 | PN ---
DATE: 06/27/2020 SUBJECTIVE: The patient is resting, slightly propped up in bed, feeling generally much better. She is still very concerned about her choking at night time and inability to sleep. PHYSICAL EXAMINATION: GENERAL: When I examined her, she looked pale, cachectic, but no jaundice, cyanosis, or thyromegaly. No jugular venous distension. No limb edema. VITAL SIGNS: Her heart rate was 76, blood pressure was ____ temperature 97.9, respiratory rate was 18 and oxygen saturation was 95%. HEAD, EYES, EARS, NOSE AND THROAT: Showed normocephalic, atraumatic. NECK: Supple. HEART: Normal first and second heart sounds. No gallop or murmur. CHEST: Shows central trachea, equally reduced expansion, reduced air entry, vesicular sounds with dull percussion noted and absent breath sounds in the right side posteriorly. ABDOMEN: Scaphoid, soft, nontender. NEUROLOGIC: She is awake, alert, responding appropriately. She is legally blind in her right eye and poor vision in the left eye. Otherwise, all other cranial nerves are intact. 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 She is able to move all extremities without difficulty. She ambulates without assistance or assistive devices. LABORATORY DATA: As of this morning showed a white cell count 5900, hemoglobin 13, hematocrit 37, MCV 90 and platelet count 212,000. Her serum sodium was 135, potassium 3.5, chloride 97, bicarbonate 31, anion gap of 7, BUN 14, creatinine 1, estimated GFR was 52 mL per minute. Her glucose 110, calcium was 8.6. Her urinalysis was essentially unremarkable. ASSESSMENT: We discussed the option of going home. The patient was still very concerned about episodes of choking and shortness of breath, what looks like paroxysmal nocturnal dyspnea. I did order a CT scan of the maxillofacial without contrast, although I doubt it can be done with the fact that she is isolated. Meanwhile, we discussed the Mucinex and she has tried it before without much help and also Flonase and said that she tried without much improvement. 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 Ongoing management was recommended. She has 1 prominent right supraclavicular lymph nodes, indeterminate, no other clearly involved nodes are seen. She has moderate centrilobular emphysema, [id number] bilateral pleural effusion. In summary, this is an 89-year-old female patient who was admitted with shortness of breath. She also complained of what looked like paroxysmal nocturnal dyspnea and did very well after diuresing her. She has a multitude of other medical problems including hypertension, peripheral artery disease. She has bilateral carotid endarterectomy and stent deployment to the left femoral artery. She has also what looks like trigeminal neuralgia and severe postnasal drip versus paroxysmal nocturnal dyspnea. We would continue with all her medication, perhaps continue with IV ceftriaxone also and if her COVID test is negative and the CT scan of the maxillary sinuses showed any abnormality, she would have an appointment with ENT surgeon for further evaluation and treatment. RANJIT MACDONALD MD DR: ELSIE/libby JOB#: [id number] / [id number]
[2020-06-27] MEDS: ATENOLOL 25 MG TABLET PO SCH (20:19)
[2020-06-27] MEDS: CLOPIDOGREL BISULFATE 75 MG TABLET PO SCH (20:20)
[2020-06-27] MEDS: LACTOBACILLUS RHAMNOSUS GG 1 CAPSULE. PO SCH (20:20)
[2020-06-27] MEDS: guaiFENesin DM 200MG/20MG 10 ML SYRUP PO PRN (21:03)
--- NOTE | 2020-06-27 21:28 | RAD ---
Exam: CT head and maxillofacial INDICATION: Postnasal drip with recurrent episodes of choking TECHNIQUE: Sequential axial images through the head and face were obtained without the administration of IV contrast. Comparisons: None FINDINGS: Head: No focal parenchymal lesion or hemorrhage is identified. There is no midline shift or sulcal effacement. Patchy hypodensity in the periventricular white matter. No acute vascular territory infarction is identified. Reynoso-white distinction is preserved. The ventricular system is within normal limits without compression hydrocephalus. The basal cisterns are well maintained. Face: Globes intradural contents are normal. The visualized portions of the paranasal sinuses and mastoid air cells are well-pneumatized. No acute fractures. IMPRESSION: 1. Moderate small vessel ischemic change, technically age indeterminate without prior imaging. 2. No acute process identified at the face. No significant sinus disease. Exposure: One or more of the following in the visualized dose reduction techniques were utilized for this examination: 1. Automated exposure control 2. Adjustment of the MA and/or KV according to patient size Use of iterative of reconstructive technique Electronically signed by: Tete Lau MD (06/27/2020 9:25 PM) [id number]
[2020-06-27 23:00] VITALS: BP 130/55
[2020-06-28 05:46] VITALS: BP 140/68
[2020-06-28] MEDS ORDERED: POTASSIUM CHLORIDE 20 MEQ TABLET.ER. PO ONE (08:00)
[2020-06-28] MEDS: FLUTICASONE 50MCG/NASAL SPRAY 16GM BOTTLE. NS SCH (08:49)
[2020-06-28] MEDS: AZITHROMYCIN 250 MG TABLET. PO SCH (08:50)
[2020-06-28] MEDS: amLODIPine BESYLATE 5 MG TABLET PO SCH (08:50)
[2020-06-28] MEDS: LACTOBACILLUS RHAMNOSUS GG 1 CAPSULE. PO SCH ×2 (08:50→19:52)
--- NOTE | 2020-06-28 09:30 | NUR ---
IP: patient PUI for COVID-19, requires contact and airborne precautions.
--- NOTE | 2020-06-28 10:11 | RAD ---
Frontal chest radiograph compared to CTA of the chest dated June 26, 2020 for congestive heart failure, shortness of air. FINDINGS: There are bilateral pleural effusions, right greater than left. Nodular opacity left lung base may represent small area of atelectasis or infiltrate, or perhaps an overlying nipple shadow. Upper and mid lung antonio are clear, with no evidence of pulmonary edema or pneumonic consolidation. No pneumothorax. Heart size mildly enlarged. There is dense atherosclerosis of the aortic arch. IMPRESSION: 1. Moderate right pleural effusion and small left pleural effusion, grossly unchanged from the prior exam. Underlying atelectasis or infiltrate at either base cannot be excluded. Electronically signed by: Yosvany Verma MD (06/28/2020 10:09 AM) [id number]
[2020-06-28] MEDS ORDERED: FUROSEMIDE 100 MG/10 ML VIAL IVP ONE (10:30)
[2020-06-28 11:23] VITALS: BP 152/64
[2020-06-28 16:16] VITALS: BP 120/76
[2020-06-28 19:20] VITALS: BP 120/75
[2020-06-28] MEDS: ATENOLOL 25 MG TABLET PO SCH (19:51)
[2020-06-28] MEDS: CLOPIDOGREL BISULFATE 75 MG TABLET PO SCH (19:51)
[2020-06-28] MEDS: guaiFENesin DM 200MG/20MG 10 ML SYRUP PO PRN (19:51)
[2020-06-28 22:12] VITALS: BP 143/64
--- NOTE | 2020-06-28 23:36 | PN ---
DATE: 06/28/2020 ATTENDING PHYSICIAN: Dr. Whitley. CHIEF COMPLAINT: Shortness of breath. SUBJECTIVE: The patient is breathing better. She is not having any exertional dyspnea. She is ambulating to the bathroom without any difficulties, still a bit nervous about the COVID-19 swab that is still pending. OBJECTIVE FINDINGS: VITAL SIGNS: Her blood pressure today is 140/68, pulse is 86 and regular, temperature 98.1 degrees Fahrenheit, oxygen saturation 92% on room air. HEENT: Head is without trauma. Pupils are reactive. Sclerae nonicteric. Oropharynx clear. NECK: Supple. LUNGS: Diminished breath sounds at both bases. CARDIOVASCULAR: Showed distant heart tones. No gallops. Peripheral pulses are palpable and full. ABDOMEN: Soft, scaphoid, nontender, no organomegaly. Bowel sounds are hypoactive. EXTREMITIES: Showed no cyanosis or edema. NEUROLOGIC: Focally intact. Hearing a bit off. She has no focal deficits. SKIN: Warm and dry. PERTINENT LABORATORY DATA: Repeat x-ray today showed bilateral pleural effusions. There is still a moderate amount of right pleural effusion. It is basically unchanged from the prior exam, underlying atelectasis cannot be excluded. Creatinine yesterday was 1.0 mg/dL, potassium 3.5 mEq. ASSESSMENT: 1. An 89-year-old female with symptomatic dyspnea. 2. Bilateral pleural effusions parapneumonic versus heart failure. She had a fairly good echocardiogram. 3. Parotid tumor. Whether this is related to fluid remains to be seen. 4. COVID-19 pending. 5. Hypertension. 6. 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 PLAN: 1. Regarding her fluid, I recommended more Lasix today. She has responded to diuresis and is clinically feeling better. 2. Continue empiric antibiotics as ordered. 3. She has an appointment through her primary care doctor, Dr. Zheng regarding ENT evaluation. The biopsy had been scheduled, but has been postponed, so whether or not this will be accomplished in the next several weeks remains to be seen. 4. Diet as tolerated. 5. She wanted to go home today. I encouraged her to stay another day for IV Lasix and diuresis and to get the results of the COVID-19 swab back. BASIA GRIER MD DR: BAYRON/libby JOB#: [id number] / [id number]
[2020-06-29 05:53] VITALS: BP 133/72
--- NOTE | 2020-06-29 06:10 | NUR ---
Pt had a good shift, had tears of efren when told her Covid was negative. Pt up ambulating in her room and up to BSC, steady gait noted. Pt expressed concern r/t to tumor on right neck and the follow up with ENT for a biopsy. Pt excited for possibility of DC home today.
[2020-06-29] MEDS: LACTOBACILLUS RHAMNOSUS GG 1 CAPSULE. PO SCH (08:34)
[2020-06-29] MEDS: AZITHROMYCIN 250 MG TABLET. PO SCH (08:34)
[2020-06-29] MEDS: amLODIPine BESYLATE 5 MG TABLET PO SCH ×2 (08:34→08:43)
[2020-06-29] MEDS: FLUTICASONE 50MCG/NASAL SPRAY 16GM BOTTLE. NS SCH (08:35)
[2020-06-29 08:43] VITALS: BP 133/72
[2020-06-29] MEDS: ATENOLOL 25 MG TABLET PO SCH (08:43)
--- NOTE | 2020-06-29 10:12 | DS ---
DATE OF DISCHARGE: ATTENDING PHYSICIAN: Dr. Whitley. FINAL DISCHARGE DIAGNOSES: 1. Community-acquired pneumonia, right lower lobe. 2. Parapneumonic effusion. 3. Recent finding of right parotid gland tumor. The biopsy was scheduled, has not been done yet. 4. Essential hypertension. 5. Hyperlipidemia. 6. Peripheral vascular disease. 7. Trigeminal neuralgia. 8. Sensorineural deafness. 9. History of shingles. 10. Bilateral carotid endarterectomy by history. HISTORY OF PRESENT ILLNESS: This is an 89-year-old female admitted to the ED with increasing shortness of breath. She has exertional dyspnea. Previous history of heart failure and also COPD. She had imaging done which showed evidence of bilateral pleural effusions, atelectasis and infiltrate in the right lobe. The right effusion was greater than the left. No pulmonary embolus was identified. We did the CT angiogram which showed moderate bilateral pleural effusions causing adjacent atelectasis. Echocardiogram done this admission showed preserved ejection fraction estimated at 60%. Chemistry panels were drawn and followed for electrolytes. She did have a COVID-19 swab which is interpreted as nonreactive and therefore negative. Serial chemistries were drawn with diuretic therapy. She responded well to diuretics with good improvement of her respiratory status. Hemoglobin maintained at 13.1 g/dL with a white count of 5900. Potassium was 3.5 mEq, sodium 135 mEq, creatinine 1.0 mEq per liter. COURSE IN THE HOSPITAL: She responded well to diuretic. She received 3 full days of intravenous Rocephin and Zithromax with marked improvement regarding the parotid gland tumor. She has been scheduled already to see the ENT surgeon who has scheduled a biopsy. Unfortunately, that has been postponed because of recent COVID infection. On the third hospital day, the patient was doing better. She was breathing better. She did not require supplemental oxygen. She was afebrile. Her vital signs were quite stable. She wanted to go home. I felt this is reasonable. I recommended 7 more days of cephalexin 500 mg p.o. t.i.d., Lasix 40 mg p.o. in the morning, K-Dur 20 mEq and I recommended strongly to get daily weights. Her other home meds are unchanged. She should continue her scheduled Plavix, fluticasone, guaifenesin, lactobacillus, amlodipine and atenolol dose is unchanged. The patient will follow up with Dr. Zheng and again followup with the ENT surgeon regarding the biopsy of the parotid gland lesion. She was discharged then from our hospital in stable condition with explicit instructions and followup care. BASIA GRIER MD DR: BAYRON/libby JOB#: [id number] / [id number] JAMES Lynn MD
--- NOTE | 2020-06-29 11:07 | NUR ---
Pt is discharging, agrees with discharge plan. Scripts for keflex, lasix and potassium given to patient. IV out and tele off. Pt escorted via wheelchair by MAIL MANAGER to front door where was in POV to take patient home.
--- NOTE | 2020-06-30 10:26 | NUR ---
IP: notified patient of COVID result.
== END 2020-06-29 11:00 | disposition home or self-care (01) | DRG 291 ==
LOC: ER 17:18 → 1 SOUTH 19:00 → OBSVTOIN 06-27 07:25
PROVIDERS: ADMIT Internal Medicine; ATTEND Internal Medicine
DX: I11.0 Hypertensive heart disease with heart failure (principal); J18.9 Pneumonia, unspecified organism; E46 Unspecified protein-calorie malnutrition; J98.11 Atelectasis; Z68.1 Body mass index [BMI] 19.9 or less, adult; B34.9 Viral infection, unspecified; I50.33 Acute on chronic diastolic (congestive) heart failure; D49.0 Neoplasm of unspecified behavior of digestive system; E11.51 Type 2 diabetes mellitus with diabetic peripheral angiopathy without gangrene; E78.00 Pure hypercholesterolemia, unspecified; E78.5 Hyperlipidemia, unspecified; E87.6 Hypokalemia; G47.00 Insomnia, unspecified; G50.0 Trigeminal neuralgia; H90.5 Unspecified sensorineural hearing loss; I25.10 Atherosclerotic heart disease of native coronary artery without angina pectoris; J43.2 Centrilobular emphysema; M19.90 Unspecified osteoarthritis, unspecified site; R09.02 Hypoxemia; Z82.3 Family history of stroke; Z86.19 Personal history of other infectious and parasitic diseases; Z86.73 Personal history of transient ischemic attack (TIA), and cerebral infarction without residual deficits; Z90.49 Acquired absence of other specified parts of digestive tract; Z87.891 Personal history of nicotine dependence; Z90.710 Acquired absence of both cervix and uterus; Z98.41 Cataract extraction status, right eye; Z98.42 Cataract extraction status, left eye; Z98.62 Peripheral vascular angioplasty status; F41.9 Anxiety disorder, unspecified; Z79.899 Other long term (current) drug therapy; Z20.828 Contact with and (suspected) exposure to other viral communicable diseases; Z88.8 Allergy status to other drugs, medicaments and biological substances
CPT/HCPCS: 36415; 70450; 70486; 71045; 71275; 80048; 80061; 80076; 81001; 82550; 83605; 83690; 83735; 83880; 84443; 84484; 85025; 85379; 85610; 85730; 87040; 93005; 93306; 94640; 96365; 96366; 96372; 96375; G0378; G0379; J0456; J0696; J1650; J1940; J7120; J7613; Q9967; 99285-25; U0003-CS

== ENCOUNTER 2020-07-09 19:10 | Inpatient (IN) | payer MEDICARE ==
[~2020-07-09] VITALS: Ht 160 cm; Wt 48.9 kg
[~2020-07-09 19:10] MED LIST changes: +AMLO5TAB10 PO; +ATEN25TA2 PO; +CALC1TAB PO; +CHOL400T36 PO; +CLOP75TA PO; +DICL100G18 TP; +IBUP-1673 PO; +VIT1CAPS12 PO; +VIT1TABL32 PO
--- NOTE | 2020-07-09 19:14 | PHYS DOC ---
Past History Past Medical History: Anxiety, Arthritis, CHF, COPD, Diabetes, High Cholesterol, Hypertension, TIA, Other Additional Past Medical Histor: Doss's Palsy x 2 Past Surgical History: Appendectomy, Cholecystectomy, Other Additional Past Surgical Histo: STENTS PLACED, CATERACT SURGERY Smoking: Quit Greater Than 1 Year Alcohol Use: None General Adult EDM: Chief Complaint: RAPID HEART RATE HPI: HPI: Patient is an 89 year old female who presents for evaluation of shortness of air and heart palpitations. Symptoms been progressing today. She had some conversational dyspnea on arrival. Patient was admitted to the hospital and treated for recent congestive heart failure. She was just discharged several days ago. Patient currently lives at home with her . Patient also was diagnosed with a recent pneumonia. Presenting O2 sats were 90% on room air. Patient took her Lasix dose earlier today. Blood pressure was stable. Patient denies any chest pain or other complaints. Review of Systems: Review of Systems: Constitutional: Denies fever or chills Eyes: Denies change in visual acuity HENT: Denies nasal congestion or sore throat Respiratory: Denies cough has shortness of breath Cardiovascular: Denies chest pain or edema GI: Denies abdominal pain, nausea, vomiting, bloody stools or diarrhea : Denies dysuria Musculoskeletal: Denies back pain or joint pain Integument: Denies rash Neurologic: Denies headache, focal weakness or sensory changes Endocrine: Denies polyuria or polydipsia Lymphatic: Denies swollen glands Psychiatric: Denies depression or anxiety Heart Score: HEART Score for Chest Pain: HEART Score for Chest Pain Response (Comments) Value History Slighlty/Non-Suspicious 0 ECG Nonspecific Repolarizatio 1 Age > 65 2 Risk Factors 1 or 2 Risk Factors 1 Troponin < Normal Limit 0 Total 4 Risk Factors: Risk Factors: DM, Current or recent (<one month) smoker, HTN, HLP, family history of CAD, obesity. Risk Scores: Score 0 - 3: 2.5% MACE over next 6 weeks - Discharge Home Score 4 - 6: 20.3% MACE over next 6 weeks - Admit for Clinical Observation Score 7 - 10: 72.7% MACE over next 6 weeks - Early Invasive Strategies Allergies: Allergies: Allergies Coded Allergies Type Severity Reaction Last Updated Verified ciprofloxacin Allergy Intermediate 06/26/20 Yes levofloxacin Allergy Intermediate 06/26/20 Yes acetaminophen Adverse Reaction Intermediate LIVER DAMAGE 06/26/20 No Physical Exam: PE: Constitutional: Well developed, well nourished, moderate acute distress. [] HENT: Normocephalic, atraumatic, bilateral external ears normal, oropharynx mildly dry, no oral exudates, nose normal. [] Eyes: PERRL, EOMI, conjunctiva normal, no discharge. [] Neck: Normal range of motion, no tenderness, supple, no stridor. [] Cardiovascular:Heart tachy rate regular rhythm, no murmur [] Lungs & Thorax: Bilateral breath sounds diminished, some rhonchi present [] Abdomen: Bowel sounds normal, soft, no tenderness, no masses. [] Skin: Warm, dry, no erythema, no rash. [] Back: No tenderness, no CVA tenderness. [] Extremities: No tenderness, no cyanosis ROM intact, mild peripheral edema. [] Neurologic: Alert and oriented X 3, normal motor function, normal sensory function, no focal deficits noted. [] Psychologic: Affect normal, judgement normal, mood normal. [] Current Patient Data: Labs: Laboratory Tests Test 07/09/20 19:43 07/09/20 20:02 White Blood Count 8.3 x10^3/uL Red Blood Count 4.22 x10^6/uL Hemoglobin 13.2 g/dL Hematocrit 38.4 % Mean Corpuscular Volume 91 fL Mean Corpuscular Hemoglobin 31 pg Mean Corpuscular Hemoglobin Concent 34 g/dL Red Cell Distribution Width 13.6 % Platelet Count 274 x10^3/uL Neutrophils (%) (Auto) 77 % Lymphocytes (%) (Auto) 9 % Monocytes (%) (Auto) 13 % Eosinophils (%) (Auto) 1 % Basophils (%) (Auto) 0 % Neutrophils # (Auto) 6.4 x10^3uL Lymphocytes # (Auto) 0.7 x10^3/uL Monocytes # (Auto) 1.0 x10^3/uL Eosinophils # (Auto) 0.1 x10^3/uL Basophils # (Auto) 0.0 x10^3/uL Sodium Level 131 mmol/L Potassium Level 3.4 mmol/L Chloride Level 94 mmol/L Carbon Dioxide Level 29 mmol/L Anion Gap 8 Blood Urea Nitrogen 19 mg/dL Creatinine 1.0 mg/dL Estimated GFR (Cockcroft-Gault) 52.3 BUN/Creatinine Ratio 19 Glucose Level 111 mg/dL Calcium Level 8.5 mg/dL Total Bilirubin 1.0 mg/dL Aspartate Amino Transf (AST/SGOT) 30 U/L Alanine Aminotransferase (ALT/SGPT) 28 U/L Alkaline Phosphatase 120 U/L Troponin I Quantitative < 0.017 ng/mL LI-Zax-S-Type Natriuretic Peptide 1351 pg/mL Total Protein 6.9 g/dL Albumin 3.1 g/dL Albumin/Globulin Ratio 0.8 Urine Collection Type Unknown Urine Color Yellow Urine Clarity Clear Urine pH 6.0 Urine Specific [place] 1.010 Urine Protein Neg Urine Glucose (UA) Neg mg/dL Urine Ketones (Stick) Neg mg/dL Urine Blood Neg Urine Nitrite Neg Urine Bilirubin Neg Urine Urobilinogen Dipstick 0.2 mg/dL Urine Leukocyte Esterase Neg Urine RBC 0 /HPF Urine WBC 0 /HPF Urine Squamous Epithelial Cells Occ /LPF Urine Bacteria 0 /HPF Current Medications Medications (Trade) Dose Ordered Sig/Leena Route PRN Reason Start Time Stop Time Status Last Admin Dose Admin Sodium Chloride (Normal Saline Flush) 10 ml 1X ONCE IV 07/09/20 19:30 07/09/20 19:31 DC EKG: EKG: Normal sinus rhythm, atrial premature complexes present, rate 82, leftward axis, not STEMI read at 1930 [] Radiology/Procedures: Radiology/Procedures: [place] [address] IMAGING REPORT Signed PATIENT: ALVIN PARKER ACCOUNT: [id number] : 1930 LOCATION: ER AGE: 89 SEX: F EXAM STATUS: REG ER ORD. PHYSICIAN: LILLIAM KERNS DO REASON: short of air PROCEDURE: PORTABLE CHEST 1V PORTABLE CHEST 1V INDICATION: Reason: short of air / Spl. Instructions: / History: . COMPARISON STUDY: 06/28/2020. FINDINGS: Lungs: Normal lung volume. Bibasilar relaxation atelectasis. The tracheobronchial tree and hilar structures are normal. Pleura: Stable moderate right and small left pleural effusions. Heart and Mediastinum: Stable cardiomediastinal silhouette and great vessels. IMPRESSION: Stable moderate right and small left pleural effusions with bibasilar relaxation atelectasis. Electronically signed by: Efrem Holt MD (07/09/2020 7:53 PM) [facility] DICTATED AND SIGNED BY: EFREM HOLT MD DATE: 07/09/201952 CC: JAMES ZAMBRANO MD; LILLIAM KERNS DO ~ [] Course & Med Decision Making: Course & Med Decision Making Pertinent Labs and Imaging studies reviewed. (See chart for details) [] Dragon Disclaimer: Dragon Disclaimer: This electronic medical record was generated, in whole or in part, using a voice recognition dictation system. [address] Whitley. Patient will be admitted for stabilization. Dose of IV Lasix given. Patient in congestive heart failure Departure Departure: Impression: Primary Impression: Acute congestive heart failure Qualified Codes: I50.9 - Heart failure, unspecified Disposition: ADMITTED INPATIENT Admitting Physician: Trey Whitley Condition: STABLE Referrals: JAMES ZAMBRANO MD (PCP) Justification of Admission: Justification of Admission: Justification of Admission Dx: Yes CHF: Cardiac Arrhythmias LILLIAM KERNS DO Jul 09, 2020 19:14
[2020-07-09] MEDS ORDERED: 0.9 % SODIUM CHLORIDE 10 ML DISP.SYRIN. IV ONE (19:30)
--- NOTE | 2020-07-09 19:31 | EKG ---
[address] [address] Test Date: 2020-07-09 Test Time: 19:25:50 Pat Name: ALVIN PARKER Department: Room: Gender: F [employer]: : 1930 Requested By: LILLIAM KERNS Order Number: [id number] Reading MD: Measurements Intervals [place] Rate: 82 P: 90 NV: 162 QRS: 5 QRSD: 88 T: 20 QT: 386 QTc: 454 Interpretive Statements SINUS RHYTHM ATRIAL PREMATURE COMPLEX(ES) OTHERWISE NORMAL ECG RI6.02 Compared to ECG 06/26/2020 17:40:01 No significant changes
--- NOTE | 2020-07-09 19:57 | RAD ---
PORTABLE CHEST 1V INDICATION: Reason: short of air / Spl. Instructions: / History: . COMPARISON STUDY: 06/28/2020. FINDINGS: Lungs: Normal lung volume. Bibasilar relaxation atelectasis. The tracheobronchial tree and hilar structures are normal. Pleura: Stable moderate right and small left pleural effusions. Heart and Mediastinum: Stable cardiomediastinal silhouette and great vessels. IMPRESSION: Stable moderate right and small left pleural effusions with bibasilar relaxation atelectasis. Electronically signed by: Stan Holt MD (07/09/2020 7:53 PM) [facility]
[2020-07-09 20:10] LABS: BASO % 0 % (0-3); EOS # 0.1 x10^3/uL (0.0-0.7); EOS % 1 % (0-3); HEMATOCRIT 38.4 % (36.0-47.0); HEMOGLOBIN 13.2 g/dL (12.0-15.5); LYMPH # 0.7 x10^3/uL (1.0-4.8); LYMPH % 9 % (24-48); MEAN CORPUSCULAR HEMOGLOBIN 31 pg (25-35); MEAN CORPUSCULAR HGB CONC 34 g/dL (31-37); MEAN CORPUSCULAR VOLUME 91 fL (79-100); MONO % 13 % (0-9); NEUT # 6.4 x10^3uL (1.8-7.7); NEUT % 77 % (31-73); PLATELET COUNT 274 x10^3/uL (140-400); RED BLOOD COUNT 4.22 x10^6/uL (3.50-5.40); RED CELL DISTRIBUTION WIDTH 13.6 % (11.5-14.5); WHITE BLOOD COUNT 8.3 x10^3/uL (4.0-11.0)
[2020-07-09 20:19] LABS: CALCIUM 8.5 mg/dL (8.5-10.1); GFR 52.3; POTASSIUM 3.4 mmol/L (3.5-5.1)
[2020-07-09 20:24] LABS: BILIRUBIN,URINE NEG (NEG); CLARITY,URINE CLEAR; COLOR,URINE YELLOW; GLUCOSE,URINE NEG (NEG)
[2020-07-09 20:25] LABS: BACTERIA,URINE 0 /HPF (0-FEW); NITRITE,URINE NEG (NEG); RBC,URINE 0 /HPF (0-2); SQUAMOUS EPITHELIAL CELL,UR OCC /LPF; UROBILINOGEN,URINE 0.2 mg/dL (0.2 mg/dL); WBC,URINE 0 /HPF (0-4)
[2020-07-09 20:32] LABS: ALBUMIN 3.1 g/dL (3.4-5.0); ALBUMIN/GLOBULIN RATIO 0.8 (1.0-1.7); TOTAL PROTEIN 6.9 g/dL (6.4-8.2)
[2020-07-09] MEDS ORDERED: ONDANSETRON PF 4 MG/2 ML VIAL. IVP PRN (22:00)
[2020-07-09] MEDS ORDERED: FUROSEMIDE 40 MG/4 ML VIAL IVP ONE (22:00)
--- NOTE | 2020-07-09 22:45 | NUR ---
The patient, ALVIN PARKER, 89 y/o, F admitted by RANJIT MACDONALD MD, was given written information regarding hospital policies, unit procedures and contact persons. Valuables were checked and documented. Pts vitals are stable. Pt has no complaints of pain. Pt is currently on 2L NC sating at 97%. Pt is being monitored via telemetry. Will continue to monitor.
[2020-07-09 23:04] VITALS: BP 144/75
[2020-07-09] MEDS ORDERED: IBUP-1673 PO (23:35)
[2020-07-09] MEDS ORDERED: DICL100G18 TP (23:35)
[2020-07-10 05:43] VITALS: BP 124/67
[2020-07-10 06:22] LABS: BASO % 1 % (0-3); EOS # 0.1 x10^3/uL (0.0-0.7); EOS % 2 % (0-3); HEMATOCRIT 36.7 % (36.0-47.0); HEMOGLOBIN 12.5 g/dL (12.0-15.5); LYMPH # 0.6 x10^3/uL (1.0-4.8); LYMPH % 10 % (24-48); MEAN CORPUSCULAR HEMOGLOBIN 31 pg (25-35); MEAN CORPUSCULAR HGB CONC 34 g/dL (31-37); MEAN CORPUSCULAR VOLUME 91 fL (79-100); MONO # 0.8 x10^3/uL (0.0-1.1); MONO % 13 % (0-9); NEUT # 4.4 x10^3uL (1.8-7.7); NEUT % 75 % (31-73); PLATELET COUNT 246 x10^3/uL (140-400); RED BLOOD COUNT 4.02 x10^6/uL (3.50-5.40); RED CELL DISTRIBUTION WIDTH 13.5 % (11.5-14.5); WHITE BLOOD COUNT 5.8 x10^3/uL (4.0-11.0)
[2020-07-10 06:42] LABS: ALBUMIN 2.6 g/dL (3.4-5.0); ALBUMIN/GLOBULIN RATIO 0.8 (1.0-1.7); CALCIUM 8.1 mg/dL (8.5-10.1); CREATININE 0.9 mg/dL (0.6-1.0); GFR 59.1
[2020-07-10] MEDS ORDERED: DICLOFENAC SODIUM 1% TOPICAL GEL 100GM TUBE. TP PRN (07:45)
--- NOTE | 2020-07-10 07:45 | NUR ---
NURSING NOTE CONSULT CONSULT CARDIOLOGY GIVEN TO JAYESH, HERE TO SEE PTThuy SNOWDEN RN.
--- NOTE | 2020-07-10 07:55 | PDOC2 ---
CARDIAC CONSULT DATE OF CONSULT DOS: DATE: 07/10/20 TIME: 07:48 REASON FOR CONSULT Reason for Consult CHF REFERRING PHYSICIAN Referring Physician Dr. Whitley SOURCE Source: Chart review, Patient HPI History of Present Illness This is an 89 yo female who presented secondary to shortness of breath. Reports she has had intermittent shortness of breath for the last few week. Was much worse the last couple of days. Has much more difficulty breathing yesterday, which prompted her to go to the ED for further evaluation and treatment. She denies any chest pain, dizziness, diaphoresis, or nausea/vomiting. Is breathing better this am s/p IV diuresis. PAST MEDICAL HISTORY Past Medical History [place] Palsy Cardiovascular: CHF, HTN, Other (PAD, carotid disease) PAST SURGICAL HISTORY Past Surgical History Appendectomy, Cholecystectomy, Hysterectomy, Other (bilateral carotid endarterectomy ) FAMILY HISTORY Family History: Stroke SOCIAL HISTORY Social History Smoke: No ALCOHOL: none Drugs: None CURRENT MEDICATIONS Current Medications Current Medications Sodium Chloride (Normal Saline Flush) 10 ml 1X ONCE IV ; Start 07/09/20 at 19:30; Stop 07/09/20 at 19:31; Status DC Furosemide (Lasix) 40 mg 1X ONCE IVP Last administered on 07/09/20at 22:00; Start 07/09/20 at 22:00; Stop 07/09/20 at 22:01; Status DC Ondansetron HCl (Zofran) 4 mg PRN Q4HRS PRN IVP NAUSEA/VOMITING; Start 07/09/20 at 22:00; Stop 07/10/20 at 21:59 Potassium Bicarbonate (Potassium Effervescent Tablet) 40 meq Q4H FT ; Start 07/10/20 at 07:45; Stop 07/10/20 at 11:46; Status UNV Amlodipine Besylate (Norvasc) 5 mg DAILY PO ; Start 07/10/20 at 09:00 Atenolol (Tenormin) 25 mg BID PO ; Start 07/10/20 at 09:00 Clopidogrel Bisulfate (Plavix) 75 mg HS PO ; Start 07/10/20 at 21:00 Diclofenac Sodium (Voltaren) 1 sid PRN TID PRN TP MUSCLE PAIN; Start 07/10/20 at 07:45 Calcium/Vitamin D (Oscal D 500mg/ 200uts) 1 tab DAILY PO ; Start 07/10/20 at 09:00 Non-Formulary Medication (Cholecalciferol (Vitamin D3) (Vitamin D)) 2,000 mg DA JUNIOR PO ; Start 07/10/20 at 09:00; Status UNV Non-Formulary Medication (Vit A/Vit C/Vit E/Zinc/Copper (Preservision Areds Softgel)) 1 each BID PO ; Start 07/10/20 at 09:00; Status UNV Furosemide (Lasix) 40 mg 1X ONCE IVP ; Start 07/10/20 at 12:00; Stop 07/10/20 at 12:01 Active Scripts Active Reported Voltaren (Diclofenac Sodium) 100 Gm Gel..gram. 1 Gm TP PRN TID PRN 30 Days apply to affected area(s) Preservision Areds Softgel (Vit A/Vit C/Vit E/Zinc/Copper) 1 Each Capsule 1 Each PO BID Vitamin D (Cholecalciferol (Vitamin D3)) 400 Unit Tablet 2,000 Mg PO DAILY Caltrate 600 + D Tablet (Calcium Carbonate/Vitamin D3) 1 Each Tablet 1 Each PO DAILY Amlodipine Besylate 5 Mg Tablet 5 Mg PO DAILY Clopidogrel (Clopidogrel Bisulfate) 75 Mg Tablet 75 Mg PO HS Atenolol 25 Mg Tablet 25 Mg PO BID ALLERGIES Allergies: Coded Allergies: ciprofloxacin (Verified Allergy, Intermediate, 06/26/20) levofloxacin (Verified Allergy, Intermediate, 06/26/20) acetaminophen (Unverified Adverse Reaction, Intermediate, LIVER DAMAGE, 06/26/20) ROS Review of Systems 14 point ROS conducted with pertinent positives noted above in HPI PHYSICAL EXAM Physical Exam General: Alert, Oriented X3, Cooperative, No acute distress HEENT: Atraumatic Lungs: Other (bibasilar crackles ) Heart: Regular rate, Normal S1, Normal S2 Abdomen: Soft, No tenderness Extremities: No edema Skin: No breakdown Neuro: Normal speech, Sensation intact Psych/Mental Status: Mental status NL, Mood NL MUSCULOSKELETAL: Osteoarthritic changes both hands VITALS Vital Signs Vital Signs Date Time Temp Pulse Resp B/P (MAP) Pulse Ox O2 Delivery O2 Flow Rate FiO2 07/10/20 05:43 98.2 67 20 124/67 (86) 95 Nasal Cannula 2.0 LABS LABS Laboratory Tests Test 07/09/20 19:43 07/09/20 20:02 07/10/20 01:45 07/10/20 06:00 White Blood Count 8.3 x10^3/uL (4.0-11.0) 5.8 x10^3/uL (4.0-11.0) Red Blood Count 4.22 x10^6/uL (3.50-5.40) 4.02 x10^6/uL (3.50-5.40) Hemoglobin 13.2 g/dL (12.0-15.5) 12.5 g/dL (12.0-15.5) Hematocrit 38.4 % (36.0-47.0) 36.7 % (36.0-47.0) Mean Corpuscular Volume 91 fL (79-100) 91 fL (79-100) Mean Corpuscular Hemoglobin 31 pg (25-35) 31 pg (25-35) Mean Corpuscular Hemoglobin Concent 34 g/dL (31-37) 34 g/dL (31-37) Red Cell Distribution Width 13.6 % (11.5-14.5) 13.5 % (11.5-14.5) Platelet Count 274 x10^3/uL (140-400) 246 x10^3/uL (140-400) Neutrophils (%) (Auto) 77 % (31-73) 75 % (31-73) Lymphocytes (%) (Auto) 9 % (24-48) 10 % (24-48) Monocytes (%) (Auto) 13 % (0-9) 13 % (0-9) Eosinophils (%) (Auto) 1 % (0-3) 2 % (0-3) Basophils (%) (Auto) 0 % (0-3) 1 % (0-3) Neutrophils # (Auto) 6.4 x10^3uL (1.8-7.7) 4.4 x10^3uL (1.8-7.7) Lymphocytes # (Auto) 0.7 x10^3/uL (1.0-4.8) 0.6 x10^3/uL (1.0-4.8) Monocytes # (Auto) 1.0 x10^3/uL (0.0-1.1) 0.8 x10^3/uL (0.0-1.1) Eosinophils # (Auto) 0.1 x10^3/uL (0.0-0.7) 0.1 x10^3/uL (0.0-0.7) Basophils # (Auto) 0.0 x10^3/uL (0.0-0.2) 0.0 x10^3/uL (0.0-0.2) Sodium Level 131 mmol/L (136-145) 134 mmol/L (136-145) Potassium Level 3.4 mmol/L (3.5-5.1) 3.0 mmol/L (3.5-5.1) Chloride Level 94 mmol/L (98-107) 96 mmol/L (98-107) Carbon Dioxide Level 29 mmol/L (21-32) 32 mmol/L (21-32) Anion Gap 8 (6-14) 6 (6-14) Blood Urea Nitrogen 19 mg/dL (7-20) 14 mg/dL (7-20) Creatinine 1.0 mg/dL (0.6-1.0) 0.9 mg/dL (0.6-1.0) Estimated GFR (Cockcroft-Gault) 52.3 59.1 BUN/Creatinine Ratio 19 (6-20) 16 (6-20) Glucose Level 111 mg/dL (70-99) 96 mg/dL (70-99) Calcium Level 8.5 mg/dL (8.5-10.1) 8.1 mg/dL (8.5-10.1) Total Bilirubin 1.0 mg/dL (0.2-1.0) 1.0 mg/dL (0.2-1.0) Aspartate Amino Transf (AST/SGOT) 30 U/L (15-37) 25 U/L (15-37) Alanine Aminotransferase (ALT/SGPT) 28 U/L (14-59) 22 U/L (14-59) Alkaline Phosphatase 120 U/L (46-116) 101 U/L (46-116) Troponin I Quantitative < 0.017 ng/mL (0-0.055) < 0.017 ng/mL (0-0.055) ZU-Duz-H-Type Natriuretic Peptide 1351 pg/mL (0-449) Total Protein 6.9 g/dL (6.4-8.2) 6.0 g/dL (6.4-8.2) Albumin 3.1 g/dL (3.4-5.0) 2.6 g/dL (3.4-5.0) Albumin/Globulin Ratio 0.8 (1.0-1.7) 0.8 (1.0-1.7) Urine Collection Type Unknown Urine Color Yellow Urine Clarity Clear Urine pH 6.0 Urine Specific [place] 1.010 Urine Protein Neg (NEG-TRACE) Urine Glucose (UA) Neg mg/dL (NEG) Urine Ketones (Stick) Neg mg/dL (NEG) Urine Blood Neg (NEG) Urine Nitrite Neg (NEG) Urine Bilirubin Neg (NEG) Urine Urobilinogen Dipstick 0.2 mg/dL (0.2 mg/dL) Urine Leukocyte Esterase Neg (NEG) Urine RBC 0 /HPF (0-2) Urine WBC 0 /HPF (0-4) Urine Squamous Epithelial Cells Occ /LPF Urine Bacteria 0 /HPF (0-FEW) ECHOCARDIOGRAM Echocardiogram <Conclusion> Left ventricle systolic function is normal. The Ejection Fraction is 50-55%. There is normal LV segmental wall motion. Doppler and Color Flow revealed mild tricuspid regurgitation. The PA pressure was estimated at 42 mmHg. DATE: 10/07/17 0909 <Conclusion> The left ventricular systolic function is normal. The Ejection Fraction is 60-65%. There is normal LV segmental wall motion. There is mild mitral valve stenosis. Mild mitral regurgitation. Moderate tricuspid regurgitation. There is moderate pulmonary hypertension. The PA pressure was estimated at 58 mmHg. There is no evidence of significant pericardial effusion. DATE: 06/27/20 1408 ASSESSMENT/PLAN Assessment/Plan 1. Acute on chronic diastolic CHF; improved s/p IV diuresis. Recent echo with preserved LV systolic function 2. Accelerated hypertension; now controlled 3. Hyperlipidemia; LDL 96 4. PAD; s/p SLEEP TECHNICIAN/stent to the left SFA. Angiogram 2018 noted with 80% calcified lesion in the right SFA, managed conservatively. Denies claudication symptoms. No wounds 5. Hypokalemia; replaced Recommendations Diuresis with monitoring of lab Check Mg and replaced as warranted Continue secondary prevention, Plavix therapy Supportive care Will arrange outpatient ischemic evaluation Patient to f/u in our office with Dr. River as scheduled. JAYESH TARIQ APRN Jul 10, 2020 07:54
[2020-07-10] MEDS: CALCIUM CARB/VIT D3 500/200 TABLET PO SCH (08:19)
[2020-07-10] MEDS: CHOLECALCIFEROL (VITAMIN D3) 1,000 UNIT TABLET PO SCH (08:19)
[2020-07-10] MEDS: ATENOLOL 25 MG TABLET PO SCH ×2 (08:20→20:40)
[2020-07-10] MEDS: amLODIPine BESYLATE 5 MG TABLET PO SCH (08:20)
[2020-07-10] MEDS: MULTIVITAMIN I-VITE TABLET. PO SCH ×2 (08:20→20:39)
[2020-07-10] MEDS: POTASSIUM BICARB 20 MEQ EFFERVESCENT TABLET. PO SCH ×2 (08:22→11:09)
[2020-07-10 10:52] VITALS: BP 115/65
[2020-07-10] MEDS ORDERED: FUROSEMIDE 40 MG/4 ML VIAL IVP ONE (12:00)
[2020-07-10] MEDS ORDERED: IOHEXOL 300 MG/ML 75 ML VIAL. IV ONE (14:45)
--- NOTE | 2020-07-10 15:07 | HP ---
ADMIT DATE: 07/09/2020 HISTORY OF PRESENT ILLNESS: The patient is an 89-year-old female patient who came to the Emergency Room complaining of shortness of breath and apparently palpitations. Symptoms started worsened on the day of admission. She is having conversational dyspnea on arrival. The patient was admitted to the hospital and treated recently for congestive heart failure. She was just discharged several days ago. She lives at home with her . The patient's oxygen saturation on arrival was 90% on room air. She denied any chest pain. Her biggest problem is cough with a large amount of secretion that she is having difficulty expectorating. She was evaluated in the Emergency Room. Her lab work showed that she has marked hypokalemia. Her BNP was high at 1350 and her chest x-ray showed that she has normal lung volumes, bibasilar relaxation atelectasis. The tracheobronchial tree and hilar structures are normal. Stable moderate right and small sided pleural effusion. Stable cardiomediastinal silhouette and great vessels. The patient was treated with IV Lasix in the Emergency Room and was admitted for further evaluation and treatment. PAST MEDICAL HISTORY: Significant for hypertension, hyperlipidemia, peripheral vascular disease, had a history of shingles, trigeminal neuralgia, sensorineural deafness and also cholelithiasis. She underwent ERCP and stone extraction. PAST SURGICAL HISTORY: Significant for bilateral carotid artery endarterectomy, left lower extremity stent deployment, bilateral cataract extraction, appendectomy, cholecystectomy, ERCP and stone extraction. ALLERGIES: She is allergic to TYLENOL, CIPROFLOXACIN, and LEVOFLOXACIN. MEDICATIONS: She is currently on Plavix 75 mg once a day, atenolol 25 mg twice a day, amlodipine 5 mg once a day, diclofenac sodium 1 gram applied topically as needed, ibuprofen 200 mg twice a day, calcium carbonate and vitamin D 1 tablet once a day, ergocalciferol 2000 units once a day and PreserVision AREDS soft gel 1 tablet p.o. b.i.d. FAMILY HISTORY: Unremarkable. SOCIAL HISTORY: She is and lives with her for over 65 years. She has no children. She quit smoking 25 years ago, quit drinking alcohol. She used to drink alcohol occasionally. Never used any drugs. 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 She is currently retired. REVIEW OF SYSTEMS: As per history of present illness. PHYSICAL EXAMINATION: GENERAL: On arrival to the Emergency Room, she looked well and was clearly in no apparent respiratory distress, pale, cachectic, but no jaundice, cyanosis or thyromegaly. No jugular venous distention. No limb edema. VITAL SIGNS: Her heart rate was 88, blood pressure was 158/76, temperature 97.8, respiratory rate was 18, and oxygen saturation was 92% on room air. HEAD, EYES, EARS, NOSE AND THROAT: Showed normocephalic, atraumatic. NECK: Supple. HEART: Normal first and second heart sounds. No gallop or murmur. CHEST: Shows central trachea, equal bilateral expansion, air entry, vesicular sounds. No crepitation or rhonchi anteriorly. She has dull percussion noted and absent breath sounds posteriorly, more on the right side than left. ABDOMEN: Scaphoid, soft, nontender. NEUROLOGIC: She is very hard of hearing, but otherwise all her cranial nerves are intact. EXTREMITIES: She moves extremities without difficulty. She ambulates with a walker. LABORATORY DATA: Her lab work on admission showed a white cell count of 8300, hemoglobin 13, hematocrit 38, MCV 91, and platelet count 274,000 with normal manual differential. Her chemistry showed a serum sodium of 131, potassium 3.4, chloride 94, bicarbonate 29, anion gap of 8, BUN 19, creatinine 1, estimated GFR was 52 mL per minute. Her glucose 111, calcium was 8.5. Total bilirubin was 1. AST, ALT normal. Alkaline phosphatase slightly elevated. Beta-natriuretic peptide was 1351. Total protein was 6.9, albumin was 3.1. Her urinalysis was essentially unremarkable. Her chest x-ray showed that she has moderate right side and small left side pleural effusion and bibasilar atelectasis. The patient was treated with IV Lasix and was admitted and continued on all her medications. We will consult the Cardiology team to assist with her management. Her most recent echocardiogram showed that she has preserved left ventricular systolic function. RANJIT MACDONALD MD DR: ELSIE/libby JOB#: [id number] / [id number]
[2020-07-10 15:46] VITALS: BP 121/64
--- NOTE | 2020-07-10 16:46 | RAD ---
EXAM: CT NECK SOFT TISSUES WITH CONTRAST. HISTORY: Recurrent cough. Tumor around carotid artery. TECHNIQUE: Computed tomography of the neck soft tissues was performed after the intravenous administration of iodinated contrast. One or more of the following individualized dose reduction techniques were utilized for this examination: 1. Automated exposure control. 2. Adjustment of the mA and/or kV according to patient size. 3. Use of iterative reconstruction technique. COMPARISON: 06/01/2020. FINDINGS: Images of the lung apices reveal a moderate right pleural effusion that appears partially loculated superiorly. The previously noted left pleural effusion is no longer seen in the apices. There is moderate centrilobular emphysema. Bone windows reveal no suspicious lesions. There are changes of bilateral cataract surgery. The mass centered within the deep lobe of the right parotid gland is not clearly changed since the prior study. It extends to the orifice of the stylomastoid foramen, and to the lateral border of the carotid space. Clear invasion of the carotid space is not seen. There is some extension to the right parapharyngeal space. The involved region spans the deep lobe of the right parotid gland, which enhances more avidly within the superficial lobe. It measures approximately 4.0 x 3.2 cm. The submandibular glands are unremarkable. A small nodule inferiorly in the left thyroid lobe measures 6 mm and is likely benign. Another nodule containing coarse calcifications extends exophytically from the inferior aspect of the left lobe and measures 2.0 x 1.1 cm and is not clearly changed. There are no clear laryngeal or pharyngeal masses. The trachea is midline and demonstrates no abnormality is included portions. One prominent right supraclavicular lymph node measures 15 x 11 mm. No other enlarged lymph nodes are seen. The stylohyoid ligaments are again noted to be ossified almost completely throughout their course. There is <50% stenosis at the origin of the right internal carotid artery. There are moderate atherosclerotic calcifications. IMPRESSION: 1. 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 No clear invasion of the carotid space is identified, but it extends to its border. The right parapharyngeal space appears involved. Malignant etiologies such as squamous cell carcinoma or primary parotid malignancy are favored over postinflammatory sequela of chronic parotitis. Ongoing management is recommended. One right supraclavicular lymph node may be involved. 2. Correlate clinically for [place] syndrome. 3. A left pleural effusion has improved and is no longer seen in this [id number]. A right pleural effusion persists and is partially loculated superiorly. 4. Moderate centrilobular emphysema. Electronically signed by: Gerald Valdez MD (07/10/2020 4:43 PM) [id number]
[2020-07-10 19:47] VITALS: BP 121/63
[2020-07-10] MEDS ORDERED: CLOPIDOGREL BISULFATE 75 MG TABLET PO SCH (21:00)
--- NOTE | 2020-07-10 23:03 | PN ---
DATE: 07/10/2020 SUBJECTIVE: The patient is resting, slightly propped up in bed, in no apparent distress. She continued to complain of shortness of breath and recurrent bouts of dry cough with difficult expectoration of all her secretions. She said that she usually starts to go and sleep in bed and then ends up almost every night in the recliner. 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 One prominent right supraclavicular lymph node is indeterminate. No other clearly involved nodes are seen. She has moderate centrilobular emphysema, [id number] bilateral pleural effusion. PHYSICAL EXAMINATION: GENERAL: When I examined her today, she was resting slightly propped up in bed, in no apparent distress. She continued to have conversational dyspnea, but there was no pallor, jaundice, cyanosis or thyromegaly. No jugular venous distention. No lower limb edema. VITAL SIGNS: Her heart rate was 69, blood pressure 115/65, temperature 97.9, respiratory rate 20, and oxygen saturation was 95%. HEAD, EYES, EARS, NOSE AND THROAT: Showed normocephalic, atraumatic. NECK: Supple. HEART: Showed normal first and second heart sounds. No gallop, rub or murmur. CHEST: Clear to auscultation. No crepitation or rhonchi. ABDOMEN: Scaphoid, soft, nontender. NEUROLOGIC: She is very hard of hearing, but otherwise all cranial nerves are intact. She moves extremities without difficulty. Her intake over the last 24 hours and output are incompletely recorded. LABORATORY DATA: Her lab work this morning showed a serum sodium 134, potassium was only 3, chloride 96, bicarbonate 32, anion gap of 6, BUN 14, creatinine 0.9, estimated GFR was 59 mL per minute. Her glucose was 96, calcium was 8.1, magnesium was 1.9. Total bilirubin, AST, ALT, alkaline phosphatase are all normal. Total protein was 6, albumin 2.6. Her white cell count was 5800, hemoglobin 12.5, hematocrit 36.7, MCV 91 and platelet count 246,000. ASSESSMENT: 1. Acute on chronic diastolic congestive heart failure. 2. 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 She has a large right-sided pleural effusion and a small left-sided pleural effusion. I did last time CT scan of her head and paranasal sinuses and they were all unremarkable, all the paranasal sinuses are well pneumatized. PLAN: My plan is to hold her Plavix. I arranged for her to have a thoracentesis of her right-sided pleural effusion and to send it for cytology, rule out possibility of malignant pleural effusion. I also arranged for her to repeat the CT scan of the soft tissues of the neck with contrast to see if there is any enlargement of the tumor that might be involving her pharynx and hypopharynx and interfering with her ability to swallow. RANJIT MACDONALD MD DR: ELSIE/libby JOB#: [id number] / [id number]
[2020-07-10 23:06] VITALS: BP 113/63
[2020-07-11 06:16] LABS: BASO % 1 % (0-3); EOS # 0.3 x10^3/uL (0.0-0.7); EOS % 4 % (0-3); HEMATOCRIT 36.4 % (36.0-47.0); HEMOGLOBIN 12.5 g/dL (12.0-15.5); LYMPH # 0.7 x10^3/uL (1.0-4.8); LYMPH % 12 % (24-48); MEAN CORPUSCULAR HEMOGLOBIN 32 pg (25-35); MEAN CORPUSCULAR HGB CONC 34 g/dL (31-37); MEAN CORPUSCULAR VOLUME 92 fL (79-100); MONO # 0.7 x10^3/uL (0.0-1.1); MONO % 12 % (0-9); NEUT # 4.3 x10^3uL (1.8-7.7); NEUT % 71 % (31-73); PLATELET COUNT 243 x10^3/uL (140-400); RED BLOOD COUNT 3.97 x10^6/uL (3.50-5.40); RED CELL DISTRIBUTION WIDTH 13.6 % (11.5-14.5)
[2020-07-11 06:35] VITALS: BP 111/88
[2020-07-11] MEDS: ATENOLOL 25 MG TABLET PO SCH ×2 (08:36→20:33)
[2020-07-11] MEDS: CHOLECALCIFEROL (VITAMIN D3) 1,000 UNIT TABLET PO SCH (08:36)
[2020-07-11] MEDS: MULTIVITAMIN I-VITE TABLET. PO SCH ×2 (08:36→20:32)
[2020-07-11] MEDS: CALCIUM CARB/VIT D3 500/200 TABLET PO SCH (08:36)
[2020-07-11] MEDS: amLODIPine BESYLATE 5 MG TABLET PO SCH (08:36)
--- NOTE | 2020-07-11 10:01 | PDOC ---
CARDIO Progress Notes Date & Time Date of Service DATE: 07/11/20 TIME: 09:55 Time of Evaluation 09:55 Subjective Notes tearful, anxious this am. Wants answers regarding parotid mass No chest pain, palpitations. SOA better Vitals Vitals Vital Signs Date Time Temp Pulse Resp B/P (MAP) Pulse Ox O2 Delivery O2 Flow Rate FiO2 07/11/20 08:36 72 111/88 07/11/20 06:35 98.7 18 94 Nasal Cannula 1.5 Weight Weight [ ] Input and Output I.O. Intake and Output 07/11/20 07:00 Intake Total 720 ml Balance 720 ml Intake Oral 720 ml # Voids 11 Laboratory Labs Laboratory Tests Test 07/09/20 19:43 07/09/20 20:02 07/10/20 01:45 07/10/20 06:00 White Blood Count 8.3 x10^3/uL (4.0-11.0) 5.8 x10^3/uL (4.0-11.0) Red Blood Count 4.22 x10^6/uL (3.50-5.40) 4.02 x10^6/uL (3.50-5.40) Hemoglobin 13.2 g/dL (12.0-15.5) 12.5 g/dL (12.0-15.5) Hematocrit 38.4 % (36.0-47.0) 36.7 % (36.0-47.0) Mean Corpuscular Volume 91 fL (79-100) 91 fL (79-100) Mean Corpuscular Hemoglobin 31 pg (25-35) 31 pg (25-35) Mean Corpuscular Hemoglobin Concent 34 g/dL (31-37) 34 g/dL (31-37) Red Cell Distribution Width 13.6 % (11.5-14.5) 13.5 % (11.5-14.5) Platelet Count 274 x10^3/uL (140-400) 246 x10^3/uL (140-400) Neutrophils (%) (Auto) 77 % (31-73) 75 % (31-73) Lymphocytes (%) (Auto) 9 % (24-48) 10 % (24-48) Monocytes (%) (Auto) 13 % (0-9) 13 % (0-9) Eosinophils (%) (Auto) 1 % (0-3) 2 % (0-3) Basophils (%) (Auto) 0 % (0-3) 1 % (0-3) Neutrophils # (Auto) 6.4 x10^3uL (1.8-7.7) 4.4 x10^3uL (1.8-7.7) Lymphocytes # (Auto) 0.7 x10^3/uL (1.0-4.8) 0.6 x10^3/uL (1.0-4.8) Monocytes # (Auto) 1.0 x10^3/uL (0.0-1.1) 0.8 x10^3/uL (0.0-1.1) Eosinophils # (Auto) 0.1 x10^3/uL (0.0-0.7) 0.1 x10^3/uL (0.0-0.7) Basophils # (Auto) 0.0 x10^3/uL (0.0-0.2) 0.0 x10^3/uL (0.0-0.2) Sodium Level 131 mmol/L (136-145) 134 mmol/L (136-145) Potassium Level 3.4 mmol/L (3.5-5.1) 3.0 mmol/L (3.5-5.1) Chloride Level 94 mmol/L (98-107) 96 mmol/L (98-107) Carbon Dioxide Level 29 mmol/L (21-32) 32 mmol/L (21-32) Anion Gap 8 (6-14) 6 (6-14) Blood Urea Nitrogen 19 mg/dL (7-20) 14 mg/dL (7-20) Creatinine 1.0 mg/dL (0.6-1.0) 0.9 mg/dL (0.6-1.0) Estimated GFR (Cockcroft-Gault) 52.3 59.1 BUN/Creatinine Ratio 19 (6-20) 16 (6-20) Glucose Level 111 mg/dL (70-99) 96 mg/dL (70-99) Calcium Level 8.5 mg/dL (8.5-10.1) 8.1 mg/dL (8.5-10.1) Total Bilirubin 1.0 mg/dL (0.2-1.0) 1.0 mg/dL (0.2-1.0) Aspartate Amino Transf (AST/SGOT) 30 U/L (15-37) 25 U/L (15-37) Alanine Aminotransferase (ALT/SGPT) 28 U/L (14-59) 22 U/L (14-59) Alkaline Phosphatase 120 U/L (46-116) 101 U/L (46-116) Troponin I Quantitative < 0.017 ng/mL (0-0.055) < 0.017 ng/mL (0-0.055) IE-Rao-M-Type Natriuretic Peptide 1351 pg/mL (0-449) Total Protein 6.9 g/dL (6.4-8.2) 6.0 g/dL (6.4-8.2) Albumin 3.1 g/dL (3.4-5.0) 2.6 g/dL (3.4-5.0) Albumin/Globulin Ratio 0.8 (1.0-1.7) 0.8 (1.0-1.7) Urine Collection Type Unknown Urine Color Yellow Urine Clarity Clear Urine pH 6.0 Urine Specific [place] 1.010 Urine Protein Neg (NEG-TRACE) Urine Glucose (UA) Neg mg/dL (NEG) Urine Ketones (Stick) Neg mg/dL (NEG) Urine Blood Neg (NEG) Urine Nitrite Neg (NEG) Urine Bilirubin Neg (NEG) Urine Urobilinogen Dipstick 0.2 mg/dL (0.2 mg/dL) Urine Leukocyte Esterase Neg (NEG) Urine RBC 0 /HPF (0-2) Urine WBC 0 /HPF (0-4) Urine Squamous Epithelial Cells Occ /LPF Urine Bacteria 0 /HPF (0-FEW) Magnesium Level 1.9 mg/dL (1.8-2.4) Test 07/10/20 12:15 07/11/20 06:05 Potassium Level 4.8 mmol/L (3.5-5.1) White Blood Count 6.0 x10^3/uL (4.0-11.0) Red Blood Count 3.97 x10^6/uL (3.50-5.40) Hemoglobin 12.5 g/dL (12.0-15.5) Hematocrit 36.4 % (36.0-47.0) Mean Corpuscular Volume 92 fL (79-100) Mean Corpuscular Hemoglobin 32 pg (25-35) Mean Corpuscular Hemoglobin Concent 34 g/dL (31-37) Red Cell Distribution Width 13.6 % (11.5-14.5) Platelet Count 243 x10^3/uL (140-400) Neutrophils (%) (Auto) 71 % (31-73) Lymphocytes (%) (Auto) 12 % (24-48) Monocytes (%) (Auto) 12 % (0-9) Eosinophils (%) (Auto) 4 % (0-3) Basophils (%) (Auto) 1 % (0-3) Neutrophils # (Auto) 4.3 x10^3uL (1.8-7.7) Lymphocytes # (Auto) 0.7 x10^3/uL (1.0-4.8) Monocytes # (Auto) 0.7 x10^3/uL (0.0-1.1) Eosinophils # (Auto) 0.3 x10^3/uL (0.0-0.7) Basophils # (Auto) 0.0 x10^3/uL (0.0-0.2) Prothrombin Time 12.3 SEC (9.4-11.4) Prothromb Time International Ratio 1.2 (0.9-1.1) Activated Partial Thromboplast Time 29 SEC (23-33) Physical Exams HEENT: Neck Supple W Full Motion Chest: Symmetric Lungs: Other (diminished ) Abdomen: Soft N/T Extremities: No Edema Neurology: alert, oriented, follow commands, other (tearful) Assessment Assessment 1. Acute on chronic diastolic CHF and moderate pleural effusion; improved s/p IV diuresis. Recent echo with preserved LV systolic function. Thoracentesis planned 2. Accelerated hypertension; now controlled 3. Hyperlipidemia; LDL 96 4. PAD; s/p HOUSING SPECIALIST/stent to the left SFA. Angiogram 2018 noted with 80% calcified lesion in the right SFA, managed conservatively. Denies claudication symptoms. No wounds 5. Hypokalemia; replaced 6. 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 Will await workup conclusion to determine further plans Patient to f/u in our office with Dr. River as scheduled. JAYESH TARIQ APRN Jul 11, 2020 10:01
[2020-07-11] MEDS: FUROSEMIDE 40 MG TABLET PO SCH (10:49)
[2020-07-11 12:56] VITALS: BP 105/53
[2020-07-11 16:17] VITALS: BP 133/62
--- NOTE | 2020-07-11 17:21 | PN ---
DATE: 07/11/2020 SUBJECTIVE: The patient is resting, slightly propped up in bed, in no apparent distress. She said she managed to cough lot of junk per her description, was able to eat a lot of food today. Apparently, the Cardiology Team recommended ischemic workup, but she stated that she is not interested in doing that for now and would like first to pursue the mass in her neck. She is scheduled for a biopsy at the [facility] on 07/19. We have also arranged for her to have a thoracentesis tomorrow. PHYSICAL EXAMINATION: GENERAL: When I examined her this afternoon, she looked well and was clearly in no apparent respiratory distress. No pallor, jaundice, cyanosis or thyromegaly. No jugular venous distention. No limb edema. VITAL SIGNS: Her heart rate was 76, blood pressure was 105/53, temperature was 98.6, respiratory rate was 18 and oxygen saturation was 93% on 1-1/2 liters of oxygen by nasal cannula. HEAD, EYES, EARS, NOSE AND THROAT: Normocephalic, atraumatic. NECK: Supple. HEART: Showed normal first and second heart sounds. No gallop, rub or murmur. CHEST: Shows central trachea, equal bilateral expansion, air entry, vesicular breath sounds. No crepitation or rhonchi anteriorly. She has dull percussion noted and absent breath sounds posteriorly on the right side. ABDOMEN: Scaphoid, soft, nontender. NEUROLOGIC: She is very hard of hearing, but otherwise all her cranial nerves are intact. She does have marked muscle wasting and weakness. Her body mass index was only 20.5 kg square meter. She stated that she lost about 40 pounds over the last 3-1/2 years. Her intake over the last 24 hours was 720, no output was recorded. Her lab work done this morning showed that her white cell count was 6,000, hemoglobin 12.5, hematocrit 36, MCV 92, and platelet count 243,000. Her prothrombin time was 12.3, INR 1.2, APTT was 29. She apparently has no chemistry done this morning. We will repeat that tomorrow. Once her thoracentesis is done and there is no complication from the procedure, she probably can go home to be followed by her primary care physician as well as Dr. Moon Osuna, the ENT surgeon, as she is scheduled for a biopsy of her neck mass on the 07/19. RANJIT MACDONALD MD DR: ELSIE/libby JOB#: [id number] / [id number]
[2020-07-11 19:28] VITALS: BP 116/63
[2020-07-11 22:49] VITALS: BP 119/68
[2020-07-12 05:44] VITALS: BP 124/57
[2020-07-12 07:09] LABS: ALBUMIN 2.4 g/dL (3.4-5.0); ALBUMIN/GLOBULIN RATIO 0.7 (1.0-1.7); CALCIUM 8.2 mg/dL (8.5-10.1); CREATININE 0.8 mg/dL (0.6-1.0); GFR 67.7; POTASSIUM 3.3 mmol/L (3.5-5.1); TOTAL BILIRUBIN 0.6 mg/dL (0.2-1.0); TOTAL PROTEIN 5.8 g/dL (6.4-8.2)
[2020-07-12] MEDS: CALCIUM CARB/VIT D3 500/200 TABLET PO SCH (08:02)
[2020-07-12] MEDS: CHOLECALCIFEROL (VITAMIN D3) 1,000 UNIT TABLET PO SCH (08:02)
[2020-07-12] MEDS: MULTIVITAMIN I-VITE TABLET. PO SCH ×2 (08:03→21:19)
[2020-07-12] MEDS: ATENOLOL 25 MG TABLET PO SCH ×2 (08:04→21:20)
[2020-07-12] MEDS: FUROSEMIDE 40 MG TABLET PO SCH ×2 (08:07→11:37)
[2020-07-12] MEDS: amLODIPine BESYLATE 5 MG TABLET PO SCH (08:08)
[2020-07-12] MEDS ORDERED: MAGNESIUM SULFATE 1GM 100 ML IV ONE ×2 (08:30→12:00)
--- NOTE | 2020-07-12 08:59 | PDOC ---
CARDIO Progress Notes Date & Time Date of Service DATE: 07/12/20 TIME: 08:55 Time of Evaluation 08:55 Subjective Notes No chest pain, palpitations, dizziness. SOA has improved Vitals Vitals Vital Signs Date Time Temp Pulse Resp B/P (MAP) Pulse Ox O2 Delivery O2 Flow Rate FiO2 07/12/20 08:08 78 124/57 07/12/20 05:44 97.7 20 94 Nasal Cannula 1.5 Weight Weight [ ] Input and Output I.O. Intake and Output 07/12/20 07:00 Intake Total 1160 ml Balance 1160 ml Intake Oral 1160 ml # Voids 2 Laboratory Labs Laboratory Tests Test 07/10/20 12:15 07/11/20 06:05 07/12/20 06:35 Potassium Level 4.8 mmol/L (3.5-5.1) 3.3 mmol/L (3.5-5.1) White Blood Count 6.0 x10^3/uL (4.0-11.0) Red Blood Count 3.97 x10^6/uL (3.50-5.40) Hemoglobin 12.5 g/dL (12.0-15.5) Hematocrit 36.4 % (36.0-47.0) Mean Corpuscular Volume 92 fL (79-100) Mean Corpuscular Hemoglobin 32 pg (25-35) Mean Corpuscular Hemoglobin Concent 34 g/dL (31-37) Red Cell Distribution Width 13.6 % (11.5-14.5) Platelet Count 243 x10^3/uL (140-400) Neutrophils (%) (Auto) 71 % (31-73) Lymphocytes (%) (Auto) 12 % (24-48) Monocytes (%) (Auto) 12 % (0-9) Eosinophils (%) (Auto) 4 % (0-3) Basophils (%) (Auto) 1 % (0-3) Neutrophils # (Auto) 4.3 x10^3uL (1.8-7.7) Lymphocytes # (Auto) 0.7 x10^3/uL (1.0-4.8) Monocytes # (Auto) 0.7 x10^3/uL (0.0-1.1) Eosinophils # (Auto) 0.3 x10^3/uL (0.0-0.7) Basophils # (Auto) 0.0 x10^3/uL (0.0-0.2) Prothrombin Time 12.3 SEC (9.4-11.4) Prothromb Time International Ratio 1.2 (0.9-1.1) Activated Partial Thromboplast Time 29 SEC (23-33) Sodium Level 137 mmol/L (136-145) Chloride Level 98 mmol/L (98-107) Carbon Dioxide Level 33 mmol/L (21-32) Anion Gap 6 (6-14) Blood Urea Nitrogen 19 mg/dL (7-20) Creatinine 0.8 mg/dL (0.6-1.0) Estimated GFR (Cockcroft-Gault) 67.7 BUN/Creatinine Ratio 24 (6-20) Glucose Level 92 mg/dL (70-99) Calcium Level 8.2 mg/dL (8.5-10.1) Total Bilirubin 0.6 mg/dL (0.2-1.0) Aspartate Amino Transf (AST/SGOT) 25 U/L (15-37) Alanine Aminotransferase (ALT/SGPT) 25 U/L (14-59) Alkaline Phosphatase 97 U/L (46-116) Total Protein 5.8 g/dL (6.4-8.2) Albumin 2.4 g/dL (3.4-5.0) Albumin/Globulin Ratio 0.7 (1.0-1.7) Physical Exams HEENT: Neck Supple W Full Motion Chest: Symmetric Lungs: Other (diminished ) Heart: RRR Abdomen: Soft N/T Extremities: No Edema Neurology: alert, oriented, follow commands Assessment Assessment 1. Acute on chronic diastolic CHF and moderate pleural effusion; improved s/p IV diuresis. Recent echo with preserved LV systolic function. Thoracentesis planned 2. Accelerated hypertension; now well controlled 3. Hyperlipidemia; LDL 96 4. PAD; s/p HR ADMINISTRATIVE ASSISTANT/stent to the left SFA. Angiogram 2018 noted with 80% calcified lesion in the right SFA, managed conservatively. Denies claudication symptoms. No wounds 5. Hypokalemia 6. 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 Will await workup conclusion to determine further plans Patient to f/u in our office with Dr. River as scheduled. JAYESH TARIQ APRN Jul 12, 2020 08:59
--- NOTE | 2020-07-12 09:03 | PN ---
DATE: 07/12/2020 ATTENDING PHYSICIANS: Trey Whitley MD and Basia Grier MD CHIEF COMPLAINT: Shortness of breath. SUBJECTIVE: She is breathing better. She is still requiring supplemental oxygen. She is apprehensive about the multiple issues. 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 OBJECTIVE FINDINGS: VITAL SIGNS: Blood pressure today is 124/57 mmHg, oxygen saturation 94% on 1-1/2 liters of oxygen by nasal cannula, temperature is 97.7 degrees Fahrenheit. HEENT: Head is without trauma. Pupils are reactive. Sclerae nonicteric. Oropharynx is clear. NECK: Supple, no bruits. LUNGS: Diminished breath sounds at bases. CARDIOVASCULAR: Showed distant heart tones. No gallops. Peripheral pulses are palpable and full. ABDOMEN: Soft, scaphoid, nontender, no organomegaly. Bowel sounds are hypoactive. EXTREMITIES: Show no cyanosis or edema. NEUROLOGIC: Very hard of hearing, otherwise intact. Speech is fluent. No focal deficit. LABORATORY DATA: Potassium is 3.3 mEq per liter, sodium 137, creatinine 0.8 mg/dL. Chest x-ray on admission showed a moderate right and left pleural effusion with bibasilar atelectasis. ASSESSMENT: 1. An 89-year-old female with recurrent pleural effusions, whether this is an exudate or transudate remains to be seen. 2. Abnormal mass in the right side of her neck. 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 3. Chronic obstructive pulmonary disease, oxygen dependent. 4. Generalized debilitation. PLAN: 1. She is scheduled for a palliative and diagnostic thoracentesis today. 2. We will make sure that we have a specimen sent for cytology. 3. Potassium and magnesium replacement. 4. She is scheduled for a neck biopsy on July 19. BASIA GRIER MD DR: BAYRON/libby JOB#: [id number] / [id number]
[2020-07-12 10:33] VITALS: BP 123/73
[2020-07-12] MEDS: POTASSIUM CHLORIDE 20 MEQ TABLET.ER. PO SCH (11:37)
--- NOTE | 2020-07-12 12:58 | RAD ---
EXAM: Sonographic guided right thoracentesis; chest, single view. HISTORY: Right pleural effusion. TECHNIQUE: The risks of the procedure discussed with the patient and written and verbal consent was obtained. A timeout was performed. Sonographic imaging of the posterior left thorax was performed and a moderate to large pleural effusion was identified. The skin in this location was sterilely prepped, draped and infiltrated with 1 percent lidocaine. A catheter was advanced into the pleural cavity and 1560 cc straw-colored pleural fluid was collected. 60 cc was submitted to the laboratory for analysis. The catheter was removed and a sterile bandage was placed at the catheter entry site. The patient tolerated the procedure without difficulty. A chest radiograph obtained following the procedure demonstrate significant interval decrease in a now small right pleural effusion. There is a stable small left pleural effusion. There is right lower lobe predominant interstitial opacity likely due to atelectasis or infiltrate. There is a stable cardiac silhouette. IMPRESSION: 1. Successful sonographic guided right thoracentesis with a yield of 1560 cc pleural fluid. 2. Decrease in a small right pleural effusion. There is diffuse lower lobe predominant increased right lung interstitial opacity due to atelectasis or infiltrate. There is a stable small left pleural effusion. Electronically signed by: Daniella Jacob MD (07/12/2020 12:55 PM) [facility]
[2020-07-12 14:39] LABS: BF SOURCE THORACENTESIS
[2020-07-12 14:42] LABS: BF CLARITY HAZY; BF COLOR YELLOW
[2020-07-12 14:44] LABS: BF WBC COUNT 612
[2020-07-12 14:45] LABS: BF MON % 24 %; BF PMN % 76 %; BF RBC COUNT 164
[2020-07-12 15:14] VITALS: BP 116/57
[2020-07-12 19:05] VITALS: BP 154/65
[2020-07-12 22:31] VITALS: BP 118/67
[2020-07-13 05:21] VITALS: BP 123/75
--- NOTE | 2020-07-13 06:00 | NUR ---
Pt rested well throughout noc. Pt denies pain or discomfort and reports feeling better after thoracentesis yesterday. Bandage to right middle back is C/D/I. Pt currently on O2 at 1L via NC to keep sats >90%.
[2020-07-13] MEDS: MULTIVITAMIN I-VITE TABLET. PO SCH (08:53)
[2020-07-13 08:54] VITALS: BP 123/75
[2020-07-13] MEDS: CALCIUM CARB/VIT D3 500/200 TABLET PO SCH (08:54)
[2020-07-13] MEDS: ATENOLOL 25 MG TABLET PO SCH (08:54)
[2020-07-13] MEDS: amLODIPine BESYLATE 5 MG TABLET PO SCH (08:54)
[2020-07-13] MEDS: CHOLECALCIFEROL (VITAMIN D3) 1,000 UNIT TABLET PO SCH (08:54)
[2020-07-13] MEDS: POTASSIUM CHLORIDE 20 MEQ TABLET.ER. PO SCH (08:55)
--- NOTE | 2020-07-13 08:58 | RAD ---
EXAM: CHEST ONE VIEW. HISTORY: Status post thoracentesis. COMPARISON: 07/12/2020. FINDINGS: A frontal view of the chest is obtained. There are small bilateral pleural effusions. Right basilar opacities are mildly increased. There is mild atelectasis in the left base. There is no pneumothorax. The heart is not enlarged. There are atherosclerotic calcifications of the aorta. IMPRESSION: 1. Small pleural effusions. Right greater than left basilar atelectasis or mild infiltrate. Electronically signed by: Gerald Valdez MD (07/13/2020 8:55 AM) [id number]
[2020-07-13] MEDS: FUROSEMIDE 40 MG TABLET PO SCH (09:01)
--- NOTE | 2020-07-13 10:25 | DS ---
DATE OF DISCHARGE: 07/13/2020 ATTENDING PHYSICIAN: Dr. Whitley. FINAL DISCHARGE DIAGNOSES: 1. Recurrent pleural effusions, greater on the right side. 2. Acute on chronic respiratory failure. 3. Oxygen-dependent chronic obstructive pulmonary disease. 4. Generalized debilitation. 5. Abnormal parotid tumor, right neck, biopsy pending. PROCEDURES: She had a palliative and diagnostic thoracentesis during this hospitalization. HISTORY AND PHYSICAL: This is a pleasant 89-year-old female well known to us. She has had recurrent pleural effusions, greater on the right side. There was a remote history of congestive heart failure, although her last echocardiogram showed preserved ejection fraction. Because of recurrence of fluid, she had a diagnostic and palliative thoracentesis. PHYSICAL EXAMINATION: Please see the dictated note. PERTINENT LABORATORY AND X-RAY STUDIES: On admission, her hemoglobin was 12.5 g/dL with a white count of 6000. Chemistry panel showed stable potassium 4.8 mEq. This will be followed up as an outpatient. Her liver panel was unremarkable. Her creatinine was 0.8 mg/dL. She did have successful right-sided thoracentesis for diagnosis as well as palliation. Initial blood count was noted. The chemistry is still not available, and certainly, the cytology was still pending at the time of discharge. Followup chest x-ray showed improvement, but residual pleural effusions remain. Heart size at normal limits. The patient felt better. She had a palliative and diagnostic thoracentesis. Final results and cytology was still pending. By the fourth hospital day, her vital signs were quite stable. She was ambulating well without any supplemental oxygen. Her blood pressure was 123 mmHg, pulse was normal, temperature was normal. At this time, she wanted to go home. She has a scheduled biopsy with the ENT surgeon, 07/19/2020, regarding her parotid tumor. Therefore, she was discharged home with the following meds: She will continue her Plavix as scheduled, amiodarone, atenolol, calcium, Voltaren gel, vitamin A and D3, doses unchanged. She has a followup appointment with Dr. River pending the results of her biopsy. The patient was then discharged from our hospital in stable condition with explicit instructions and followup care. BASIA GRIER MD DR: BAYRON/libby JOB#: [id number] / [id number] JAMES Lynn MD
--- NOTE | 2020-07-13 11:35 | NUR ---
NSG NOTE; DISCHARGE WRITTEN AND VERBAL DISCHARGE INSTRUCTIONS GIVEN TO PT WITH VERBAL UNDERSTANDING DISCHARGED TO HOME AT 1100 VIA W/C ACCOMP BY WHO PICKED HER UP
--- NOTE | 2020-07-14 14:08 | PATHOLOGY ---
Note [facility] Accession Number: [id number] TESTS RESULT FLAG UNITS REF RANGE LAB Clinician Provided Cytology Information No. of containers..01 Other (Miscellaneous) Source: RIGHT PLEURAL FLUID DIAGNOSIS: 02 RIGHT PLEURAL FLUID NEGATIVE FOR MALIGNANT CELLS. 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 THIS INTERPRETATION INCLUDES EVALUATION OF A CELL BLOCK. Signed out by: 02 Storm Medina MD, Pathologist NPI- [id number] Performed by: Claudia Almanzar, Franchise Consultant ([facility]) Gross description: 01 45ML, ADDIE MCMAHON, 1 TP 1 CB /LCS 07/13/2020 1938 Local FLAG LEGEND: L-Low Normal,H-High Normal,LL-Alert Low,HH-Alert High <-Panic Low,>-Panic High,A-Abnormal,AA-Critical Abnormal Performed at: 01 [facility] [address] [place] [address] Kei Silva MD, 02 [facility] [address] [place] [address] Storm Medina MD, Specimen Comment: A courtesy copy of this report has been sent to [phone], [phone] Specimen Comment: [id number] Specimen Comment: Report sent to DR LANE / DR TORRES Specimen Comment: Report sent to Performed at: 01 [facility] [address], [place], [place] [id number] MD Kei Silva MD Phone: [phone]
== END 2020-07-13 11:00 | disposition home or self-care (01) | DRG 189 ==
LOC: ER 19:10 → 1 SOUTH 21:43 → ER 22:35
PROVIDERS: ADMIT Internal Medicine; ATTEND Internal Medicine
PROC: 0W993ZX Drainage of Right Pleural Cavity, Percutaneous Approach, Diagnostic (ICD-10-PCS; principal; 2020-07-13)
DX: J96.20 Acute and chronic respiratory failure, unspecified whether with hypoxia or hypercapnia (principal); I50.33 Acute on chronic diastolic (congestive) heart failure; J98.11 Atelectasis; J43.2 Centrilobular emphysema; I11.0 Hypertensive heart disease with heart failure; E11.51 Type 2 diabetes mellitus with diabetic peripheral angiopathy without gangrene; E78.00 Pure hypercholesterolemia, unspecified; E78.5 Hyperlipidemia, unspecified; E87.6 Hypokalemia; H90.5 Unspecified sensorineural hearing loss; Z86.19 Personal history of other infectious and parasitic diseases; Z82.3 Family history of stroke; Z86.73 Personal history of transient ischemic attack (TIA), and cerebral infarction without residual deficits; Z87.01 Personal history of pneumonia (recurrent); Z87.891 Personal history of nicotine dependence; Z90.49 Acquired absence of other specified parts of digestive tract; Z90.710 Acquired absence of both cervix and uterus; Z98.41 Cataract extraction status, right eye; Z98.42 Cataract extraction status, left eye; Z98.62 Peripheral vascular angioplasty status; Z99.81 Dependence on supplemental oxygen; F41.9 Anxiety disorder, unspecified; G51.0 Bell's palsy; M19.90 Unspecified osteoarthritis, unspecified site; Z88.8 Allergy status to other drugs, medicaments and biological substances
CPT/HCPCS: 32555; 36415; 70491; 71045; 76942; 80053; 81001; 82042; 82945; 83615; 83735; 83880; 84132; 84157; 84484; 85025; 85610; 85730; 89050; 93005; 96374; J1940; J3475; Q9967; 99285-25

== ENCOUNTER → 2020-08-16 | Outpatient (CLI) | payer MEDICARE ==
--- NOTE | 2020-08-16 15:51 | RAD ---
AP and Lateral Views of the Chest 08/16/2020 12:00 AM Indication: Reason: SOA / Spl. Instructions: / History: Comparison: Chest radiograph July 13, 2020 Findings: There are small bilateral pleural effusions with mild underlying atelectasis. No pneumothorax is identified. Similar emphysematous changes noted throughout the bilateral lungs. Heart size is normal. No acute osseous changes are seen. IMPRESSION: Small bilateral pleural effusions with underlying atelectasis. Similar emphysematous changes. Electronically signed by: Yousif Matthews MD (08/16/2020 3:48 PM) [id number]
== END | disposition home or self-care (01) ==
LOC: DXRAD 11:24
PROVIDERS: ATTEND Specialist
DX: J98.11 Atelectasis (principal); J90 Pleural effusion, not elsewhere classified; J43.9 Emphysema, unspecified
CPT/HCPCS: 71046

== ENCOUNTER → 2021-03-21 | Outpatient (CLI) | payer MEDICARE ==
[~2021-03-21] MED LIST changes: +AMLO-186 PO; -AMLO5TAB10 PO; +IOHEXOL 300 MG/ML 75 ML VIAL. IV ONE
--- NOTE | 2021-03-23 08:41 | RAD ---
EXAM: Neck CT without and with contrast. HISTORY: Parotid gland carcinoma. TECHNIQUE: Computed tomographic images of the neck were obtained prior to and following the administr ation of intravenous contrast. COMPARISON: 07/10/2020. FINDINGS: There has been interval decrease in the size of an ill-defined mass within the deep lobe of the right parotid gland measuring approximately 3.8 x 1.2 cm compared to prior measurements of 4.3 x 1.6 cm on transaxial images. This is allowing for differences in patient positioning and volume aver aging between exams. The lesion extends to the stylomastoid foramen, lateral border of the carotid sp issa and right parapharyngeal space. Stable appearance. The lesion is slightly hyperenhancing relative to the superficial lobe of the right parotid gland. There is no neck lymphadenopathy. The left parotid gland and submandibular glands are unremarkable. There is a stable 5 mm nodule or [address] st within the left thyroid lobe and stable heterogeneous nodule containing coarse calcifications diamond g the inferior left thyroid lobe measuring 2.1 cm. There is pulmonary emphysema with biapical pleural parenchymal scarring. There is calcified atherosclerotic plaque involving the visualized aortic arch and origin of the left subclavian artery, with less than 50 percent stenosis. There is also mild par tially calcified atherosclerotic plaque at the origin of the right subclavian artery, without hemodyn amically significant stenosis. There is moderate partially calcified atherosclerotic plaque involving the origin of the right internal carotid artery, with less than 50 percent stenosis. There is noncal cified atherosclerotic plaque within the left carotid bifurcation without significant stenosis. The v ertebral arteries are widely patent. The visualized portions the brain are unremarkable. The visualized paranasal sinuses are unremarkable . There is fluid within the right mastoid air cells. No calvarial lesion is seen. There are degenerat jasmin changes throughout the cervical spine. This includes disc bulges with endplate remodeling and fac et and uncovertebral arthropathy at multiple levels. This is associated with moderate to severe right foraminal stenosis at C2-C3, severe right and mild/moderate left foraminal stenosis at C3-C4, modera te right and mild left foraminal stenosis at C4-C5, moderate right foraminal stenosis at C5-C6 and mo derate right and severe left foraminal stenosis at C6-C7. 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 IMPRESSION: 1. Decrease in the size of an ill-defined mass within the deep lobe of the right parotid gland compar ed to the prior study, allowing for differences in patient positioning and measurement technique. The re is stable extension to the stylomastoid foramen and carotid space and likely into the right paraph aryngeal space. There is no convincing lymphadenopathy 2. Stable left thyroid nodules, the larger of which measures 2.1 cm inferiorly. This can be better as sessed with a thyroid sonogram. 3. 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 4. Pulmonary emphysema. 5. 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 Electronically signed by: Daniella Jacob MD (03/23/2021 8:39 AM) [id number]
== END ==
LOC: CT 09:48
PROVIDERS: ATTEND Radiology Radiation Oncology
DX: C07 Malignant neoplasm of parotid gland (principal); J43.9 Emphysema, unspecified
CPT/HCPCS: 70492; Q9967

== ENCOUNTER → 2021-10-01 | Outpatient (CLI) | payer MEDICARE ==
[~2021-10-01] MED LIST changes: -IOHEXOL 300 MG/ML 75 ML VIAL. IV ONE
--- NOTE | 2021-10-01 11:12 | RAD ---
XR CHEST 2V, XR ABDOMEN 1V 10/01/2021 Reason: COUGH Comparison: Chest radiograph 08/16/2020 Technique: PA, lateral views of the chest, supine view the abdomen Findings: There are trace bilateral pleural effusions, decreased from the prior study. There is linear opacitie s at the lung bases, likely atelectasis. A 4 mm nodular opacity along the right lateral chest wall is similar to prior. The heart appears enlarged compared to prior with a rounded morphology. No pneumot horax. There is pneumobilia. Moderate stool throughout the colon. No air-filled dilated loops small and larg e intestine. 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 Impression: 1. Enlarged, rounded heart silhouette when compared to prior. Correlate with signs and symptoms of pe ricardial effusion. 2. Nonspecific nonobstructive bowel gas pattern. 3. Pneumobilia as before. Electronically signed by: Amarjit Rodriguez (10/01/2021 11:10 AM) [id number]
== END ==
LOC: RAD 09:44
PROVIDERS: ATTEND Specialist
DX: I51.7 Cardiomegaly (principal); K83.8 Other specified diseases of biliary tract; R91.8 Other nonspecific abnormal finding of lung field; K56.41 Fecal impaction; M41.86 Other forms of scoliosis, lumbar region
CPT/HCPCS: 71046; 74018

== ENCOUNTER → 2021-10-23 | Outpatient (CLI) | payer MEDICARE ==
--- NOTE | 2021-10-23 17:24 | CARD ---
MR#: [id number] Date of Study: 10/23/2021 Ordering Physician: JAMES ZAMBRANO, Referring Physician: JAMES ZAMBRANO, Tech: Rosmery Curtis, [facility] APPROVED REPORT EXAM: Two-dimensional and M-mode echocardiogram with Doppler and color Doppler. Other Information Quality : AverageHR: 54bpm INDICATION Congestive Heart Failure RISK FACTORS Hypertension 2D DIMENSIONS RVDd2.5 (2.9-3.5cm)Left Atrium(2D)3.6 (1.6-4.0cm) IVSd1.0 (0.7-1.1cm)Aortic Root(2D)2.7 (2.0-3.7cm) LVDd4.5 (3.9-5.9cm)LVOT Diameter2.0 (1.8-2.4cm) PWd0.9 (0.7-1.1cm)LVDs3.1 (2.5-4.0cm) FS (%) 30.4 %SV52.6 ml Aortic Valve AoV Peak Luis.230.4cm/sAoV VTI58.8cm AO Peak GR.18.6mmHgLVOT Peak Luis.203.4cm/s LVOT VTI 52.77cmAO Mean GR.11mmHg NAVEEN (VMAX)2.03th0ZSN (VTI)2.69cm2 Mitral Valve MV E Dzwpemwn694.9cm/sMV E Peak Gr.6mmHg MV DECEL [id number] A Cmjqfxhl219.9cm/s MV E Mean Gr.2mmHgE/A Ratio1.0 Pulmonary Valve PV Peak Spvdkusf51.3cm/sPV Peak Grad.2mmHg Tricuspid Valve TR P. Ycgseblt606sw/sRAP [id number] TR Peak Gr.87kcMaMHWO73umTy LEFT VENTRICLE The left ventricle is normal size. There is normal left ventricular wall thickness. The left ventricu lar systolic function is normal and the ejection fraction is within normal range. The Ejection Fracti on is 55-60%. There is normal LV segmental wall motion. Transmitral Doppler flow pattern is Grade II- pseudonormal filling dynamics. RIGHT VENTRICLE The right ventricle is normal size. There is normal right ventricular wall thickness. The right ventr icular systolic function is normal. ATRIA The left atrium is borderline dilated. The right atrium size is normal. The interatrial septum is int act with no evidence for an atrial septal defect or patent foramen ovale as noted on 2-D or Doppler i maging. AORTIC VALVE The aortic valve is calcified but opens well. Doppler and Color Flow revealed no significant aortic r egurgitation. There is no significant aortic valvular stenosis. Calculated aortic valve area is 1.4 c m2 with maximum pressure gradient of 21 mmHg and mean pressure gradient of 11 mmHg. MITRAL VALVE The mitral valve is mildly thickened. There is no evidence of mitral valve prolapse. There is no mitr al valve stenosis. Doppler and Color-flow revealed trace to mild mitral regurgitation. TRICUSPID VALVE The tricuspid valve is normal in structure and function. Doppler and Color Flow revealed trace to mil d tricuspid regurgitation with an estimated PAP of 40 mmHg. There is no tricuspid valve stenosis. PULMONIC VALVE The pulmonic valve is not well visualized. Doppler and Color Flow revealed trace pulmonic valvular re gurgitation. GREAT VESSELS The aortic root is normal in size. The IVC is normal in size and collapses >50% with inspiration. PERICARDIAL EFFUSION There is no evidence of significant pericardial effusion. Critical Notification Critical Value: No <Conclusion> The left ventricle is normal size. The left ventricular systolic function is normal and the ejection fraction is within normal range. The Ejection Fraction is 55-60%. Doppler and Color Flow revealed no significant aortic regurgitation. There is no significant aortic valvular stenosis. Calculated aortic valve area is 1.4 cm2 with maximum pressure gradient of 21 mmHg and mean pressure g radient of 11 mmHg. Doppler and Color-flow revealed trace to mild mitral regurgitation. Doppler and Color Flow revealed trace to mild tricuspid regurgitation with an estimated PAP of 40 mmH g. Signed by : Krishna Monteiro MD Electronically Approved : 10/23/2021 17:24:06
== END ==
LOC: ECHO 12:48
PROVIDERS: ATTEND Specialist
DX: I08.3 Combined rheumatic disorders of mitral, aortic and tricuspid valves (principal); I50.9 Heart failure, unspecified
CPT/HCPCS: 93306